=== PATIENT | female | born 1970 | race Caucasian/White ===

== ENCOUNTER → 2017-06-30 | Day surgery (SDC) | payer BC ==
--- NOTE | 2017-06-29 18:44 | MH ---
cc: CEE VELIZ M.D. DATE OF ADMISSION: 06/30/2017 HISTORY OF PRESENT ILLNESS: The patient is a 46-year-old white female, 0, who came to see me in my office at the end of February. At that time she had not been to our office in over four years. She presented for a yearly checkup but reported that her periods over the last eight months have been heavier and longer with a passage of blood clots. We performed a Pap smear at this screening visit at the end of February and it came back with a low-grade MARY and atypical glandular cells of undetermined significance. 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 Based on these findings, I have recommended that the patient undergo a cold knife cone biopsy for definitive diagnosis and possible treatment. She understands and would like to proceed with that. PAST MEDICAL HISTORY: The past medical history on the patient is pertinent for: 1. Hypothyroidism just diagnosed this year. PAST SURGICAL HISTORY: 1. A vulvar mass resection which was benign. 2. An ulnar nerve surgery. MEDICATIONS: 1. Levothyroxine. ALLERGIES TO MEDICATIONS: None. SOCIAL HISTORY: No tobacco. Rare alcohol. No drug use. 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 FAMILY HISTORY: Family history is negative. 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 No history of STDs. OB HISTORY: 0. PHYSICAL EXAMINATION: WEIGHT: 194. HEIGHT: 5 feet 6. VITAL SIGNS: Blood pressure is 128/80, pulse of 70. BREASTS: Without masses, nodes or discharge. CHEST: Clear to auscultation bilaterally. CARDIAC: Regular rate and rhythm without murmurs, rubs or gallops. ABDOMEN: The abdomen is soft, nontender and nondistended. No hepatosplenomegaly. No costovertebral angle tenderness. No hernias. PELVIC EXAM: Vulva and vagina, normal external female genitalia without lesions. Vaginal vault without lesions. Cervix from colposcopy showed acetowhite mosaic lesions between six and twelve o'clock. Uterus palpates normal size. No adnexal masses. LABORATORY VALUES: As in the history of present illness. ASSESSMENT: A high-grade lesion on the ectocervix and a high-grade lesion on the endocervix. PLAN: The plan will be for a cold knife cone biopsy. MD ANIYAH Roblero/JCKenzie /6:23 PM /6:31 PM
[~2017-06-30] VITALS: Ht 167.6 cm; Wt 88.4 kg
[~2017-06-30] MED LIST: CHLORHEXIDINE GLUCONATE 2 % 1 PACK (2 CLOTHS) TOPICAL PRN; DEXAMETHASONE SOD PHOS 4 MG/ML VIAL IV ONE; DO NOT ADM ANY ANTICOAGULANT DRUGS PRN; INSULIN HUMAN REGULAR 1,000 UNITS/10 ML VIAL SQ PRN; KETOROLAC TROMETHAMINE 30 MG/ML (IVP) VIAL IV PUSH ONE; KETOROLAC TROMETHAMINE 30 MG/ML (IVP) VIAL ONE; LACTATED RINGER'S 1000 ML IV PRN; LEVO50TA4 PO; LIDOCAINE 1%/EPINEPHrine 1:100,000 SOLN 50 ML VIAL ONE; LIDOCAINE HCL 1% PF 5 ML AMPULE OTHER ONE; LIOT25TA3 PO; METOPROLOL TARTRATE 25 MG TAB PO PRN; MULTTAB67 PO; ONDANSETRON HCL 4 MG/2 ML VIAL IV PUSH ONE; ONDANSETRON HCL 4 MG/2 ML VIAL IV PUSH PRN; PHENYLEPH/NS 1000 MCG/10 ML SYR IV ONE; POVIDONE IODINE 5% (ANTISEPSIS KIT) 4 APPLICATIONS EACH NARE PRN; PROPOFOL 200 MG/20 ML AMP IV ONE; SODIUM CHLORID 0.9% 500 ML IV PRN; oxyCODONE/ACETAMINOPHEN 5 MG/325 MG TAB PO PRN
[2017-06-30 08:58] LABS: AUTOMATED NEUTROPHIL # 3.4 TH/MM3 (1.8-7.7); BASOPHIL # 0.1 TH/MM3 (0-0.2); BASOPHIL % 1.1 % (0.0-2.0); EOSINOPHIL # 0.1 TH/MM3 (0-0.4); EOSINOPHIL % 1.5 % (0.0-4.0); HEMATOCRIT 30.6 % (35.0-46.0); HEMO FLAGS DIFF FINAL; LYMPH % 26.8 % (9.0-44.0); LYMPHOCYTE # 1.5 TH/MM3 (1.0-4.8); MEAN CELL VOLUME 70.1 FL (80.0-100.0); MEAN CORPUSCULAR HEMOGLOBIN 21.6 PG (27.0-34.0); MEAN CORPUSCULAR HGB CONC 30.8 % (32.0-36.0); MONO % 8.7 % (0.0-8.0); NEUT % 61.9 % (16.0-70.0); PLATELET COUNT 419 TH/MM3 (150-450); RED BLOOD COUNT 4.36 MIL/MM3 (4.00-5.30); RED CELL DISTRIBUTION WIDTH 17.2 % (11.6-17.2); WHITE BLOOD COUNT 5.5 TH/MM3 (4.0-11.0)
[2017-06-30 09:18] LABS: BETA HCG QUANT LESS THAN 1 MIU/ML (0-5)
[2017-06-30 13:12] VITALS: BP 128/72; PULSE 78; RESP 16; TEMP 98.7; O2SAT 100
--- NOTE | 2017-07-01 09:56 | MP ---
cc: CEE VELIZ M.D. DATE OF SURGERY: 06/30/2017 PREOPERATIVE DIAGNOSIS High-grade MARY (squamous intraepithelial lesion) of the ectocervix and the endocervix. POSTOPERATIVE DIAGNOSIS High-grade MARY (squamous intraepithelial lesion) of the ectocervix and the endocervix. PROCEDURE PERFORMED Cold knife cone biopsy. OPERATING SURGEON Dr. Cee Veliz. ANESTHESIA General by facemask. FINDINGS Findings in surgery included a nulliparous cervix. ESTIMATED BLOOD LOSS Minimal. COMPLICATIONS None. PROCEDURE IN DETAIL After proper consents were obtained, the patient was taken to the operating room where general by facemask anesthesia was applied. She was then sterilely prepped and draped, placed in the dorsal lithotomy position and her bladder was drained. At this time a weighted speculum was placed in the vaginal vault. The anterior lip of cervix was grasped with an Allis clamp. Just for retraction sake I went ahead and placed stay sutures at 3 o'clock and 9 o'clock with 0 Vicryl and tied those down. I then injected lidocaine with epinephrine in a circumferential fashion around the cervix. I then performed a cold knife cone biopsy being very aggressive with the endocervix due to her positive ECC. I then performed an endocervical curetting above the cone biopsy. I used a Bovie cautery in the bed of the cone for hemostasis. I then ran the stay sutures from 3 to 9 o'clock in an interlocking fashion and then from 9 o'clock to 3 o'clock. Excellent hemostasis was noted. I placed Surgicel in the bed of the cone biopsy and tied the two ends across from the 3 and 9 o'clock sutures. The instruments were removed. Counts were correct. The patient was stable to the recovery room. MD ANIYAH Roblero/BECCA /7:50 AM /9:45 AM
== END | disposition home or self-care (01) ==
LOC: HSDC 07:58
PROVIDERS: ATTEND Obstetrics & Gynecology
DX: D06.9 Carcinoma in situ of cervix, unspecified (principal)
CPT/HCPCS: 00940; 57520; 84702; 85025; 88305; 88307; J1100; J1885; J2370; J2405; J3010; J7120

== ENCOUNTER 2018-05-11 08:52 | Inpatient (IN) ==
[2018-05-11] MEDS ORDERED: Sod Chloride 0.9% Inj 1,000 ML IV.SIG SCH (09:15)
--- NOTE | 2018-05-11 09:51 | ED ---
HPI General Chief Complaint: Respiratory Symptoms Stated Complaint: SOB Time Seen by Provider: 05/11/18 09:05 Source: patient Mode of arrival: ambulatory Limitations: no limitations History of Present Illness Patient is a 47-year-old female, past medical history significant for fibroids for which she is on oral contraceptives, who presents with complaint of shortness of breath over the last several days. She originally attributed it to the humidity but realizes that was likely not the cause. No chest pain. No fever, chills, cough, congestion. She has not had any leg swelling or immobilization. She has also had dysfunctional uterine bleeding with a menstrual cycle for the last 15 days that is improving. She is using less than 1 pad an hour. 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 MD Complaint: shortness of breath Onset (ago): day(s) Severity: moderate Consistency/Duration: constant Relieving factors: nothing Exacerbating factors: nothing Treatment prior to arrival: none Related Data Home Medications Medication Instructions Recorded Confirmed norethindrone-e.estradiol-iron 1 cap PO DAILY 05/11/18 05/11/18 [Taytulla] Allergies Allergy/AdvReac Type Severity Reaction Status Date / Time No Known Allergies Allergy Uncoded 06/30/17 08:20 Review of Systems ROS: all other systems reviewed are negative [facility] Medical History Medical History Uterine fibroid (Acute) Social History Social History Substance History: No History of Abuse Second Hand Smoke Exposure: No Smoking Status: Never smoker How Often Do You Have a Drink Containing Alcohol: 2 to 4 times a month Recent Travel in [facility] within the Last 8 Weeks: No Recent Out of Country Travel within the Last 8 Weeks: No Immunization History Tetanus Immunization: <5 Years Hx Influenza Vaccine This Season: No Exam Narrative Exam Narrative: GENERAL: Generally well-appearing, pale female in no acute distress SKIN: Focused skin assessment warm/dry. HEAD: Atraumatic. Normocephalic. EYES: Pupils equal and round. No scleral icterus. No injection or drainage. ENT: No nasal bleeding or discharge. Mucous membranes pink and moist. NECK: Trachea midline. No JVD. CARDIOVASCULAR: Tachycardic but regular. No murmur appreciated. Intact and equal peripheral pulses. RESPIRATORY: No accessory muscle use. Clear to auscultation. Breath sounds equal bilaterally. GASTROINTESTINAL: Abdomen soft, non-tender, nondistended. Hepatic and splenic margins not palpable. MUSCULOSKELETAL: No obvious deformities. No clubbing. No cyanosis. No edema. NEUROLOGICAL: Awake and alert. No obvious cranial nerve deficits. Motor grossly within normal limits. Normal speech. PSYCHIATRIC: Appropriate mood and affect; insight and judgment normal. Course Initial Documented Vital Signs Temperature 98.1 F 05/11/18 08:56 Pulse Rate 125 H 05/11/18 08:56 Respiratory Rate 18 05/11/18 08:56 Blood Pressure 191/82 H 05/11/18 08:56 Pulse Oximetry 100 05/11/18 08:56 Last Documented Vital Signs Temperature 98.1 F 05/11/18 08:56 Pulse Rate 102 H 05/11/18 10:30 Respiratory Rate 18 05/11/18 08:58 Blood Pressure 141/74 H 05/11/18 10:30 Pulse Oximetry 98 05/11/18 10:57 Medical Decision Making [facility] Narrative Medical decision making narrative: Patient is a 47-year-old female who presents with complaint of shortness of breath over the last several days with 2 weeks of menstruation that is improving since she has been put on oral contraceptives. Imaging shows a small right pleural effusion but no pulmonary embolism. Labs do reveal hemoglobin of 6.5. She will be given 2 units of red blood cells and admitted for transfusion. I spoke with the resident information developer for Dr. Cedillo who accepted the admission. Medical Screen Exam Complete: Yes Emergency Medical Condition: Yes Differential Diagnosis Differential Diagnosis: Differential diagnosis includes but is not limited to pulmonary embolism, acute coronary syndrome, pneumonia, pneumothorax, symptomatic anemia. Medical Records Medical records reviewed: Yes I reviewed the patient's medical records. Lab Data Result diagrams: 05/11/18 10:30 05/11/18 10:30 POC Results POC Urine Results Negative Lab Results 05/11/18 05/11/18 05/11/18 Range/Units 10:30 10:30 10:30 WBC 5.9 (4.0-11.0) th/mm3 RBC 2.53 L (4.00-5.30) mil/mm3 Hgb 6.5 L* (11.6-15.3) gm/dL Hct 21.0 L (35.0-46.0) % MCV 83.0 (80.0-100.0) fL MCH 25.8 L (27.0-34.0) pg MCHC 31.1 L (32.0-36.0) % RDW 25.6 H (11.6-17.2) % Plt Count 336 (150-450) th/mm3 MPV 7.7 (7.0-11.0) fL Prelim Diff (Auto) Slide review pending Neut % (Auto) 67.6 (16.0-70.0) % Lymph % (Auto) 23.0 (9.0-44.0) % [place] % (Auto) 6.4 (0.0-8.0) % Eos % (Auto) 2.6 (0.0-4.0) % Baso % (Auto) 0.4 (0.0-2.0) % Neut # (Auto) 4.0 (1.8-7.7) th/mm3 Lymph # (Auto) 1.3 (1.0-4.8) th/mm3 [place] # (Auto) 0.4 (0.0-0.9) th/mm3 Eos # (Auto) 0.1 (0.0-0.4) th/mm3 Baso # (Auto) 0.0 (0.0-0.2) th/mm3 Differential Comment . PT 9.9 (9.8-11.6) sec INR 1.0 Ratio APTT 19.8 L (24.3-30.1) sec Sodium 141 (136-145) meq/L Potassium 3.5 (3.5-5.1) meq/L Chloride 107 (98-107) meq/L Carbon Dioxide 23.0 (21.0-32.0) meq/L Anion Gap 11 (5-15) meq/L BUN 10 (7-18) mg/dL Creatinine 0.93 (0.50-1.00) mg/dL Estimated GFR 65 L (>89) mL/min Random Glucose 99 (74-106) mg/dL Calcium 8.0 L (8.5-10.1) mg/dL Total Bilirubin 0.3 (0.2-1.0) mg/dL AST 11 L (15-37) U/L ALT 16 (10-53) U/L Alkaline Phosphatase 58 (45-117) U/L Troponin I Less than 0.02 L (0.02-0.05) ng/mL Total Protein 6.7 (6.4-8.2) g/dL Albumin 3.4 (3.4-5.0) g/dL Urine Color (Yellw/Straw) Urine Clarity (Clear) Urine pH (5.0-8.5) Ur Specific [place] (1.002-1.035) Urine Protein (Neg-Trace) mg/dL Urine Glucose (UA) (Negative) mg/dL Urine Ketones (Negative) mg/dL Urine Occult Blood (Negative) Urine Nitrate (Negative) Urine Bilirubin (Negative) Urine Urobilinogen (Less than 2) mg/dL Ur Leukocyte Esterase (Negative) Urine RBC (0-3) /hpf Urine WBC (0-5) /hpf Urine WBC Clumps (None) Ur Squamous Epith Cells (0-5) /hpf Urine Bacteria (None) /hpf Urine Mucus (Occasional) /lpf Micro UA Comment Ur Microscopic Review Urine Culture Comments MTS Gel Crossmatch 05/11/18 05/11/18 Range/Units 10:30 11:30 WBC (4.0-11.0) th/mm3 RBC (4.00-5.30) mil/mm3 Hgb (11.6-15.3) gm/dL Hct (35.0-46.0) % MCV (80.0-100.0) fL MCH (27.0-34.0) pg MCHC (32.0-36.0) % RDW (11.6-17.2) % Plt Count (150-450) th/mm3 MPV (7.0-11.0) fL Prelim Diff (Auto) Neut % (Auto) (16.0-70.0) % Lymph % (Auto) (9.0-44.0) % [place] % (Auto) (0.0-8.0) % Eos % (Auto) (0.0-4.0) % Baso % (Auto) (0.0-2.0) % Neut # (Auto) (1.8-7.7) th/mm3 Lymph # (Auto) (1.0-4.8) th/mm3 [place] # (Auto) (0.0-0.9) th/mm3 Eos # (Auto) (0.0-0.4) th/mm3 Baso # (Auto) (0.0-0.2) th/mm3 Differential Comment PT (9.8-11.6) sec INR Ratio APTT (24.3-30.1) sec Sodium (136-145) meq/L Potassium (3.5-5.1) meq/L Chloride (98-107) meq/L Carbon Dioxide (21.0-32.0) meq/L Anion Gap (5-15) meq/L BUN (7-18) mg/dL Creatinine (0.50-1.00) mg/dL Estimated GFR (>89) mL/min Random Glucose (74-106) mg/dL Calcium (8.5-10.1) mg/dL Total Bilirubin (0.2-1.0) mg/dL AST (15-37) U/L ALT (10-53) U/L Alkaline Phosphatase (45-117) U/L Troponin I (0.02-0.05) ng/mL Total Protein (6.4-8.2) g/dL Albumin (3.4-5.0) g/dL Urine Color Red (Yellw/Straw) Urine Clarity Cloudy H (Clear) Urine pH 6.0 (5.0-8.5) Ur Specific [place] 1.011 (1.002-1.035) Urine Protein 100 H (Neg-Trace) mg/dL Urine Glucose (UA) Negative (Negative) mg/dL Urine Ketones Negative (Negative) mg/dL Urine Occult Blood Large H (Negative) Urine Nitrate Negative (Negative) Urine Bilirubin Negative (Negative) Urine Urobilinogen Less than 2 (Less than 2) mg/dL Ur Leukocyte Esterase Moderate H (Negative) Urine RBC (0-3) /hpf Urine WBC 19 H (0-5) /hpf Urine WBC Clumps Occasional H (None) Ur Squamous Epith Cells 5 (0-5) /hpf Urine Bacteria Occasional H (None) /hpf Urine Mucus Few H (Occasional) /lpf Micro UA Comment Culture indicated Ur Microscopic Review Not Reportable Urine Culture Comments Culture indicated MTS Gel Crossmatch See Detail Imaging Data Attestation: I personally reviewed and interpreted this imaging study as follows : My impression: Small effusion but no other acute cardiopulmonary process. Radiologist's impression: Chest X-Ray 05/11/18 09:12 CONCLUSION: Negative for an acute process. Chest CTA 05/11/18 09:13 CONCLUSION: 1. Isolated small right pleural effusion. 2. Normal heart size without obvious congestive failure or pulmonary embolism. 3. There is no adenopathy. ECG Data EKG Prior to Arrival: No Attestation: I personally reviewed and interpreted this ECG as follows: (Sinus tachycardia at a rate of 111 bpm. There are no ST or T-wave changes.) Discharge Plan Discharge Disposition Patient Disposition: 30 Still Patient Discharge Condition Condition: Stable Discharge Details Diagnosis: Symptomatic anemia Physicians Team ED Provider: Doris Guardado Primary Care Provider: Terrance Anderson Rxs /Orders / Referrals /Forms Prescriptions: No Action norethindrone-e.estradiol-iron [Taytulla] 1 mg-20 mcg (24)/75 mg (4) Capsule 1 cap PO DAILY RF: 0 Discharge Interventions Interventions: Vital Signs Last Done: 05/11/18 10:30 Status ED Status: With Doctor
--- NOTE | 2018-05-11 09:51 | XR ---
EXAM DATE: 05/11/2018 9:48 AM EDT AGE/SEX: 47 years / Female INDICATIONS: Short of breath. Patient states taking medication for fibroids for 3 weeks and has seen a change in her breathing. CLINICAL DATA: This is the patient's initial encounter. Patient reports that signs and symptoms have been present for 2 weeks and indicates a pain score of 4/10. MEDICAL/SURGICAL HISTORY: . Uterine fibroids None. COMPARISON: No prior exams available for comparison. FINDINGS: A single AP view of the chest demonstrates the lungs to be symmetrically aerated without evidence of mass, infiltrate or effusion. The cardiomediastinal contours are unremarkable. Osseous structures a re intact. CONCLUSION: Negative for an acute process. Electronically signed by: Nathaniel Welch MD 05/11/2018 9:50 AM EDT
[2018-05-11 11:32] LABS: Baso % (Auto) 0.4 % (0.0-2.0); Eos # (Auto) 0.1 th/mm3 (0.0-0.4); Eos % (Auto) 2.6 % (0.0-4.0); Lymph # (Auto) 1.3 th/mm3 (1.0-4.8); Mean Corpuscular HGB Conc 31.1 % (32.0-36.0); Mean Corpuscular Hemoglobin 25.8 pg (27.0-34.0); Mean Platelet Volume 7.7 fL (7.0-11.0); Mono # (Auto) 0.4 th/mm3 (0.0-0.9); Mono % (Auto) 6.4 % (0.0-8.0); Neut % (Auto) 67.6 % (16.0-70.0); Platelet Count 336 th/mm3 (150-450); Red Blood Count 2.53 mil/mm3 (4.00-5.30); Red Cell Distribution Width 25.6 % (11.6-17.2); White Blood Count 5.9 th/mm3 (4.0-11.0)
--- NOTE | 2018-05-11 11:38 | CT ---
EXAM DATE: 05/11/2018 11:33 AM EDT AGE/SEX: 47 years / Female INDICATIONS: Shortness of breath today. CLINICAL DATA: This is the patient's initial encounter. Patient reports that signs and symptoms have been present for 1 day and indicates a pain score of 0/10. MEDICAL/SURGICAL HISTORY: None. None. RADIATION DOSE: 10.37 CTDI (mGy) COMPARISON: No prior exams available for comparison. TECHNIQUE: Volumetric scanning was performed using a multi-row detector CT scanner during bolus infu kevin of 73 ml Omnipaque 350 (iohexol) nonionic water-soluble contrast as a single exam dose. The rafael a was post processed with a variety of visualization algorithms including full volume maximum intensi ty projection and sliding thin slab reformation. Using automated exposure control and adjustment of t he mA and/or kV according to patient size, radiation dose was kept as low as reasonably achievable to obtain optimal diagnostic quality images. DICOM format image data is available electronically for r eview and comparison. FINDINGS: Pulmonary Arteries: No filling defects are seen in the pulmonary arteries out to the subsegmental ve ssels. The left and right pulmonary arteries are normal in diameter. There is no cardiomegaly. No si gnificant coronary calcifications. Lung: Small right pleural effusion without consolidation. Normal left lung. Mediastinum: No evidence of mediastinal or hilar adenopathy. Right pleural effusion Other: The axilla is unremarkable. CONCLUSION: 1. Isolated small right pleural effusion. 2. Normal heart size without obvious congestive failure or pulmonary embolism. 3. There is no adenopathy. Electronically signed by: Nathaniel Welch MD 05/11/2018 11:37 AM EDT
[2018-05-11 11:39] LABS: Hemoglobin 6.5 gm/dL (11.6-15.3)
[2018-05-11 11:45] LABS: Prothrombin Time 9.9 sec (9.8-11.6)
[2018-05-11 11:46] LABS: Activated Partial Thrombo Time 19.8 sec (24.3-30.1)
[2018-05-11 11:58] LABS: Bacteria,Urine Occasional /hpf; Bilirubin,Urine Negative (Negative); Clarity,Urine Cloudy (Clear); Color,Urine Red (Yellw/Straw); Glucose,Urine (UA) Negative (Negative); Leukocyte Esterase,Urine Moderate (Negative); Mucus,Urine Few /lpf (Occasional); Nitrite,Urine Negative (Negative); Specific Gravity,Urine 1.011 (1.002-1.035); Squamous Epithelial Cell,Urine 5 /hpf (0-5)
[2018-05-11] MEDS ORDERED: Sodium Chlor 0.9% Inj 250 ML IV.SIG SCH (12:00)
[2018-05-11 12:03] LABS: Albumin 3.4 g/dL (3.4-5.0); Anion Gap 11 meq/L (5-15); Aspartate Aminotransferase 11 U/L (15-37); Blood Urea Nitrogen 10 mg/dL (7-18); Chloride 107 meq/L (98-107); Glomerular Filtration Rate 65 mL/min (>89); Glucose,Random 99 mg/dL (74-106); Potassium 3.5 meq/L (3.5-5.1); Sodium 141 meq/L (136-145)
[2018-05-11 12:05] LABS: Alanine Aminotransferase 16 U/L (10-53)
[2018-05-11 12:09] LABS: Alkaline Phosphatase 58 U/L (45-117); Total Protein 6.7 g/dL (6.4-8.2)
[2018-05-11 12:14] LABS: Ovalocytes 1+; Polychromasia 2.3 % (0.0-1.9)
[2018-05-11] MEDS ORDERED: Acetaminophen 325 MG Tablet PO PRN (12:20)
[2018-05-11] MEDS ORDERED: Bisacodyl 10 MG Supp RECTAL PRN (12:20)
--- NOTE | 2018-05-11 18:11 | P.HPFP ---
History of Present Illness Primary Care Physician: Terrance Anderson MD <Wendy Cedillo - 05/11/18 20:57> Terrance Anderson MD <Anu Robbins V - 05/11/18 18:11> Chief Complaint: Shortness of breath <Anu Robbins V - 05/11/18 20:28> History of Present Illness: Pt is a 47 yr old female with a PMH of fibroids, currently being seen outpatient by Dr. Joseph, whom presented to the ED after a 4 day history of shortness of breath. Pt states she has been on a new control pill to try to control her fibroid pain/periods. Pt states she has had a heavy period for the past 2 weeks non stop. She reports going through over 40 tampons. She states she's been having the most severe mestrual cramps she ever had and has been passing large blood clots. Last Friday she started feeling short of breath and that her heart was racing, she called her Doctor and was instructed to get outpatient labs. She was notified today, Friday morning, that her Hb on Friday was 5. This morning (before receiving call back) pt decided to come to the ED due to continuous symptoms. She denies chest pain, chills/ fevers, fainting, but states has been feeling week and dizzy. 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 She denies tobacco, alcohol, or recreational drug use. She is not sexually active at the moment. Pt denies Family history. <Anu Robbins V - 05/11/18 20:45> - Diagnosis (1) Symptomatic anemia (2) Nutrition, metabolism, and development symptoms (3) DVT prophylaxis <Wendy Cedillo - 05/11/18 20:57> (1) Symptomatic anemia (2) Nutrition, metabolism, and development symptoms (3) DVT prophylaxis <Anu Robbins V - 05/11/18 20:29> Inpatient Certification: I certify that the inpatient services were ordered in accordance with Medicare regulations governing the order. This includes certification that hospital inpatient services are reasonable and necessary and in the case of services not specified as inpatient-only under 42 CFR 419.22(n), that they are appropriately provided as inpatient services in accordance to with the 2-midnight benchmark under 43 CFR 412.3(e) <Wendy Cedillo - 05/11/18 20:57> I certify that the inpatient services were ordered in accordance with Medicare regulations governing the order. This includes certification that hospital inpatient services are reasonable and necessary and in the case of services not specified as inpatient-only under 42 CFR 419.22(n), that they are appropriately provided as inpatient services in accordance to with the 2-midnight benchmark under 43 CFR 412.3(e) <Juan VillasenorAnu Villalba 05/11/18 18:11> Estimated Total Length of Stay (Days): 2 <Anu Robbins V 05/11/18 18: 11> Plans for Post Hospital Care: Home <Juan VillasenorAnu Villalba 05/11/18 18:11> Review of Systems Constitutional: Reports lack of energy, Reports weakness, Denies chills, Denies fever(s), Denies headache(s) <Juan VillasenorAnu Villalba 05/11/18 20:28> Ears, Nose, Mouth, and Throat: Denies headache(s) <Juan VillasenorAnu Villalba 20:28> Cardiovascular: Reports fast heart rate, Reports lightheadedness, Reports shortness of breath, Reports shortness of breath with activity, Denies chest pain, Denies fainting, Denies leg swelling <Juan VillasenorAnu Villalba 05/11/18 20:28> Respiratory: Reports shortness of breath, Denies cough <Juan VillasenorAnu Villalba 05/11/18 20:28> Gastrointestinal: Reports abdominal pain, Reports cramping, Denies vomiting < Juan VillasenorAnu Villalba 05/11/18 20:28> Genitourinary: Reports abnormal periods, Reports abnormal vaginal bleeding, Reports bleeding between periods, Reports heavy periods, Reports pelvic pain, Denies painful urination, Denies urinary urgency <Juan Villasenor,Anu Villalba 20:28> Neurologic: Reports dizziness, Denies fainting <Juan VillasenorAnu Villalba 20:28> PMFSH - History History Provided By: Patient <Juan VillasenorAnu Villalba 05/11/18 18:11> - Medical History Medical History: Medical History (Last Updated 05/11/18 @ 20:32 by Anu Villasenor MD, R1) HPV (human papilloma virus) infection History of hypothyroidism Uterine fibroid Vulvar cyst <Wendy Cedillo - 05/11/18 20:57> Medical History (Last Updated 05/11/18 @ 20:32 by Anu Villasenor MD, R1) HPV (human papilloma virus) infection History of hypothyroidism Uterine fibroid Vulvar cyst <Aun Robbins V 05/11/18 20:45> - Surgical History Surgical History: Surgical History (Last Updated 05/11/18 @ 20:33 by Anu Villasenor MD, R1 ) Hx of cone biopsy of cervix Hx of total cystectomy <Wendy Cedillo - 05/11/18 20:57> Surgical History (Last Updated 05/11/18 @ 20:33 by Anu Villasenor MD, R1 ) Hx of cone biopsy of cervix Hx of total cystectomy <Anu Robbins V 05/11/18 20:45> - Tobacco History Second Hand Smoke Exposure: No <Anu Robbins V 05/11/18 18:11> Tobacco Use In Past 30 Days: No <Anu Robbins V 05/11/18 18:11> Smoking Status: Never smoker <Anu Robbins V 05/11/18 18:11> - Alcohol History How Often Do You Have a Drink Containing Alcohol: Monthly or less <Anu Robbins V 05/11/18 18:11> - Substance Use History Substance History: No History of Abuse <Anu Robbins V 05/11/18 18:11 > - Travel History Recent Travel in the [facility] Within the Last 8 Weeks: No <Anu Robbins V 05/11/18 18:11> Recent Travel Out of the Country Within the Last 8 Weeks: No <Anu Robbins V 05/11/18 18:11> - Immunization History Tetanus Immunization: <5 Years <Anu Robbins V 05/11/18 18:11> Hx Influenza Vaccine This Season: No <Anu Robbins V 05/11/18 18:11> Medications and Allergies Allergies Allergy/AdvReac Type Severity Reaction Status Date / Time No Known Allergies Allergy Uncoded 06/30/17 08:20 <Wendy Cedillo - 05/11/18 20:57> Home Medications Medication Instructions Recorded Confirmed Type norethindrone-e.estradiol-iron 1 cap PO DAILY 05/11/18 05/11/18 History [[place]] <Wendy Cedillo - 05/11/18 20:57> Active Medications: Active Medications Acetaminophen (Tylenol) 650 mg PO Q4H PRN PRN Reason: TEMP>101F, HEADACHE Last Admin: 05/11/18 16:11 Dose: 650 mg Al Hydroxide/Mg Hydroxide (Milk Of Magnesia Liq) 30 ml PO Q12H PRN PRN Reason: Mild Constipation Bisacodyl (Dulcolax Supp) 10 mg RECTAL DAILY PRN PRN Reason: SEVERE CONSITIPATION Sodium Chloride (Ns Inj) 1,000 mls @ 0 mls/hr IV.SIG BOLUS CEDRIC Sodium Chloride (Ns Inj) 250 mls @ 15 mls/hr IV.SIG ONCE CEDRIC Stop: 05/12/18 04:39 Last Admin: 05/11/18 16:12 Dose: 15 mls/hr Ibuprofen (Motrin) 600 mg PO Q6H PRN PRN Reason: pain 1-10 Lactulose (Lactulose Liq) 30 ml PO DAILY PRN PRN Reason: SEVERE CONSITIPATION Ondansetron HCl (Zofran Inj) 4 mg IV.PUSH Q6H PRN PRN Reason: NAUSEA OR VOMITING Senna/Docusate Sodium (Radha-Colace) 1 tab PO BID [facility] Sennosides (Senokot) 17.2 mg PO Q12H PRN PRN Reason: Moderate Constipation Sodium Chloride (Ns Flush) 2 ml IV.FLUSH PRN PRN PRN Reason: FLUSH AFTER USING IV ACCESS <Wendy Cedillo - 05/11/18 20:57> Active Medications Acetaminophen (Tylenol) 650 mg PO Q4H PRN PRN Reason: TEMP>101F, PAIN 1-10, HEADACHE Last Admin: 05/11/18 16:11 Dose: 650 mg Al Hydroxide/Mg Hydroxide (Milk Of Magnesia Liq) 30 ml PO Q12H PRN PRN Reason: Mild Constipation Bisacodyl (Dulcolax Supp) 10 mg RECTAL DAILY PRN PRN Reason: SEVERE CONSITIPATION Sodium Chloride (Ns Inj) 1,000 mls @ 0 mls/hr IV.SIG BOLUS CEDRIC Sodium Chloride (Ns Inj) 250 mls @ 15 mls/hr IV.SIG ONCE CEDRIC Stop: 05/12/18 04:39 Last Admin: 05/11/18 16:12 Dose: 15 mls/hr Lactulose (Lactulose Liq) 30 ml PO DAILY PRN PRN Reason: SEVERE CONSITIPATION Ondansetron HCl (Zofran Inj) 4 mg IV.PUSH Q6H PRN PRN Reason: NAUSEA OR VOMITING Senna/Docusate Sodium (Radha-Colace) 1 tab PO BID CEDRIC Sennosides (Senokot) 17.2 mg PO Q12H PRN PRN Reason: Moderate Constipation Sodium Chloride (Ns Flush) 2 ml IV.FLUSH PRN PRN PRN Reason: FLUSH AFTER USING IV ACCESS <Anu Robbins V - 05/11/18 18:11> Exam Vital signs: Vital Signs 05/11/18 08:56 05/11/18 08:58 05/11/18 09:50 Temperature 98.1 F Pulse Rate 125 H 116 H 106 H Respiratory Rate 18 18 Blood Pressure 191/82 H 176/91 H Pulse Oximetry 100 100 98 05/11/18 10:00 05/11/18 10:30 05/11/18 10:57 Temperature Pulse Rate 106 H 102 H Respiratory Rate Blood Pressure 146/75 H 141/74 H Pulse Oximetry 99 99 98 05/11/18 11:36 05/11/18 11:58 05/11/18 12:00 Temperature Pulse Rate 110 H 106 H 104 H Respiratory Rate Blood Pressure 125/79 135/67 Pulse Oximetry 100 100 100 05/11/18 12:30 05/11/18 13:17 05/11/18 14:12 Temperature 98.4 F Pulse Rate 108 H 114 H 108 H Respiratory Rate 16 18 Blood Pressure 142/65 H 136/67 138/71 Pulse Oximetry 100 99 96 05/11/18 15:45 05/11/18 16:05 05/11/18 16:15 Temperature 100.0 F H 100.1 F H 98.9 F Pulse Rate 117 H 117 H 119 H Respiratory Rate 18 18 18 Blood Pressure 145/78 H 145/73 H 134/71 Pulse Oximetry 99 Intake & Output 05/11/18 05/11/18 05/12/18 06:59 18:59 06:59 Intake Total 250 / 250 400 / 400 Balance 250 / 250 400 / 400 Weight 86.636 kg Intake: Oral 250 / 250 Intake (Blood Product) Amt 0 / 0 400 / 400 Rbc As-3 Leukoreduced Unit 0 / 0 400 / 400 [id number] Other: # Voids 2 Weight On Admission 86.636 kg <Wendy Cedillo - 05/11/18 20:57> Vital Signs 05/11/18 08:56 05/11/18 08:58 05/11/18 09:50 Temperature 98.1 F Pulse Rate 125 H 116 H 106 H Respiratory Rate 18 18 Blood Pressure 191/82 H 176/91 H Pulse Oximetry 100 100 98 05/11/18 10:00 05/11/18 10:30 05/11/18 10:57 Temperature Pulse Rate 106 H 102 H Respiratory Rate Blood Pressure 146/75 H 141/74 H Pulse Oximetry 99 99 98 05/11/18 11:36 05/11/18 11:58 05/11/18 12:00 Temperature Pulse Rate 110 H 106 H 104 H Respiratory Rate Blood Pressure 125/79 135/67 Pulse Oximetry 100 100 100 05/11/18 12:30 05/11/18 13:17 05/11/18 14:12 Temperature 98.4 F Pulse Rate 108 H 114 H 108 H Respiratory Rate 16 18 Blood Pressure 142/65 H 136/67 138/71 Pulse Oximetry 100 99 96 05/11/18 15:45 05/11/18 16:05 05/11/18 16:15 Temperature 100.0 F H 100.1 F H 98.9 F Pulse Rate 117 H 117 H 119 H Respiratory Rate 18 18 18 Blood Pressure 145/78 H 145/73 H 134/71 Pulse Oximetry 99 Intake & Output 05/10/18 05/11/18 05/11/18 18:59 06:59 18:59 Intake Total 0 / 0 Balance 0 / 0 Weight 86.636 kg Intake: Intake (Blood Product) Amt 0 / 0 Rbc As-3 Leukoreduced Unit 0 / 0 [id number] Other: Weight On Admission 86.636 kg <Anu Robbins V - 05/11/18 20:45> Narrative: GENERAL: Well-nourished, pale white female in NAD, sitting in bed. SKIN: Warm and dry. HEAD: Normocephalic and atraumatic. EYES: No scleral icterus. No injection or drainage. Pale eye lids. ENT: No nasal drainage noted. Airway patent. CARDIOVASCULAR: Tachycardic in 100's. Regular rate and rhythm without murmurs, gallops, or rubs. RESPIRATORY: Breath sounds equal bilaterally. No accessory muscle use. ABDOMEN/GI: Abdomen soft, minimally tender to palpation on RUQ and RLQ, bowel sounds present, no rebound, no guarding EXTREMITIES: No cyanosis or edema. Normal capillary refill. BACK: Nontender without obvious deformity. No CVA tenderness. NEUROLOGICAL: Awake and alert. Motor and sensory grossly within normal limits. Normal speech. <Anu Robbins V - 05/11/18 20:45> Results - Labs Result diagrams: 05/11/18 10:30 05/11/18 10:30 <Wendy Cedillo - 05/11/18 20:57> Abnormal lab results 05/11/18 05/11/18 05/11/18 Range/Units 10:30 10:30 10:30 RBC 2.53 L (4.00-5.30) mil/mm3 Hgb 6.5 L* (11.6-15.3) gm/dL Hct 21.0 L (35.0-46.0) % MCH 25.8 L (27.0-34.0) pg MCHC 31.1 L (32.0-36.0) % RDW 25.6 H (11.6-17.2) % Polychromasia 2.3 H (0.0-1.9) % Ovalocytes 1+ H (None) APTT 19.8 L (24.3-30.1) sec Estimated GFR 65 L (>89) mL/min Calcium 8.0 L (8.5-10.1) mg/dL AST 11 L (15-37) U/L Troponin I Less than 0.02 L (0.02-0.05) ng/mL Urine Clarity (Clear) Urine Protein (Neg-Trace) mg/dL Urine Occult Blood (Negative) Ur Leukocyte Esterase (Negative) Urine WBC (0-5) /hpf Urine WBC Clumps (None) Urine Bacteria (None) /hpf Urine Mucus (Occasional) /lpf MTS Gel Crossmatch 05/11/18 05/11/18 Range/Units 10:30 11:30 RBC (4.00-5.30) mil/mm3 Hgb (11.6-15.3) gm/dL Hct (35.0-46.0) % MCH (27.0-34.0) pg MCHC (32.0-36.0) % RDW (11.6-17.2) % Polychromasia (0.0-1.9) % Ovalocytes (None) APTT (24.3-30.1) sec Estimated GFR (>89) mL/min Calcium (8.5-10.1) mg/dL AST (15-37) U/L Troponin I (0.02-0.05) ng/mL Urine Clarity Cloudy H (Clear) Urine Protein 100 H (Neg-Trace) mg/dL Urine Occult Blood Large H (Negative) Ur Leukocyte Esterase Moderate H (Negative) Urine WBC 19 H (0-5) /hpf Urine WBC Clumps Occasional H (None) Urine Bacteria Occasional H (None) /hpf Urine Mucus Few H (Occasional) /lpf MTS Gel Crossmatch See Detail Short CBC 05/11/18 Range/Units 10:30 WBC 5.9 (4.0-11.0) th/mm3 Hgb 6.5 L* (11.6-15.3) gm/dL Hct 21.0 L (35.0-46.0) % Plt Count 336 (150-450) th/mm3 BMP 05/11/18 10:30 Sodium 141 Potassium 3.5 Chloride 107 Carbon Dioxide 23.0 BUN 10 Creatinine 0.93 Calcium 8.0 L Cardiac Enzymes 05/11/18 Range/Units 10:30 Troponin I Less than 0.02 L (0.02-0.05) ng/mL Liver Function 05/11/18 Range/Units 10:30 Total Bilirubin 0.3 (0.2-1.0) mg/dL AST 11 L (15-37) U/L ALT 16 (10-53) U/L Alkaline Phosphatase 58 (45-117) U/L Albumin 3.4 (3.4-5.0) g/dL Urine 05/11/18 Range/Units 10:30 Urine Color Red (Yellw/Straw) Urine Clarity Cloudy H (Clear) Urine pH 6.0 (5.0-8.5) Ur Specific [place] 1.011 (1.002-1.035) Urine Protein 100 H (Neg-Trace) mg/dL Urine Glucose (UA) Negative (Negative) mg/dL <Wendy Cedillo - 05/11/18 20:57> Abnormal lab results 05/11/18 05/11/18 05/11/18 Range/Units 10:30 10:30 10:30 RBC 2.53 L (4.00-5.30) mil/mm3 Hgb 6.5 L* (11.6-15.3) gm/dL Hct 21.0 L (35.0-46.0) % MCH 25.8 L (27.0-34.0) pg MCHC 31.1 L (32.0-36.0) % RDW 25.6 H (11.6-17.2) % Polychromasia 2.3 H (0.0-1.9) % Ovalocytes 1+ H (None) APTT 19.8 L (24.3-30.1) sec Estimated GFR 65 L (>89) mL/min Calcium 8.0 L (8.5-10.1) mg/dL AST 11 L (15-37) U/L Troponin I Less than 0.02 L (0.02-0.05) ng/mL Urine Clarity (Clear) Urine Protein (Neg-Trace) mg/dL Urine Occult Blood (Negative) Ur Leukocyte Esterase (Negative) Urine WBC (0-5) /hpf Urine WBC Clumps (None) Urine Bacteria (None) /hpf Urine Mucus (Occasional) /lpf MTS Gel Crossmatch 05/11/18 05/11/18 Range/Units 10:30 11:30 RBC (4.00-5.30) mil/mm3 Hgb (11.6-15.3) gm/dL Hct (35.0-46.0) % MCH (27.0-34.0) pg MCHC (32.0-36.0) % RDW (11.6-17.2) % Polychromasia (0.0-1.9) % Ovalocytes (None) APTT (24.3-30.1) sec Estimated GFR (>89) mL/min Calcium (8.5-10.1) mg/dL AST (15-37) U/L Troponin I (0.02-0.05) ng/mL Urine Clarity Cloudy H (Clear) Urine Protein 100 H (Neg-Trace) mg/dL Urine Occult Blood Large H (Negative) Ur Leukocyte Esterase Moderate H (Negative) Urine WBC 19 H (0-5) /hpf Urine WBC Clumps Occasional H (None) Urine Bacteria Occasional H (None) /hpf Urine Mucus Few H (Occasional) /lpf MTS Gel Crossmatch See Detail Short CBC 05/11/18 Range/Units 10:30 WBC 5.9 (4.0-11.0) th/mm3 Hgb 6.5 L* (11.6-15.3) gm/dL Hct 21.0 L (35.0-46.0) % Plt Count 336 (150-450) th/mm3 BMP 05/11/18 10:30 Sodium 141 Potassium 3.5 Chloride 107 Carbon Dioxide 23.0 BUN 10 Creatinine 0.93 Calcium 8.0 L Cardiac Enzymes 05/11/18 Range/Units 10:30 Troponin I Less than 0.02 L (0.02-0.05) ng/mL Liver Function 05/11/18 Range/Units 10:30 Total Bilirubin 0.3 (0.2-1.0) mg/dL AST 11 L (15-37) U/L ALT 16 (10-53) U/L Alkaline Phosphatase 58 (45-117) U/L Albumin 3.4 (3.4-5.0) g/dL Urine 05/11/18 Range/Units 10:30 Urine Color Red (Yellw/Straw) Urine Clarity Cloudy H (Clear) Urine pH 6.0 (5.0-8.5) Ur Specific [place] 1.011 (1.002-1.035) Urine Protein 100 H (Neg-Trace) mg/dL Urine Glucose (UA) Negative (Negative) mg/dL <Anu Robbins V - 05/11/18 18:11> - Imaging Impressions Chest X-Ray 05/11/18 09:12 CONCLUSION: Negative for an acute process. Chest CTA 05/11/18 09:13 CONCLUSION: 1. Isolated small right pleural effusion. 2. Normal heart size without obvious congestive failure or pulmonary embolism. 3. There is no adenopathy. <Wendy Cedillo - 05/11/18 20:57> Impressions Chest X-Ray 05/11/18 09:12 CONCLUSION: Negative for an acute process. Chest CTA 05/11/18 09:13 CONCLUSION: 1. Isolated small right pleural effusion. 2. Normal heart size without obvious congestive failure or pulmonary embolism. 3. There is no adenopathy. <Juan VillasenorAnu Villalba - 05/11/18 18:11> Caprini VTE Risk Assessment Caprini VTE Risk Assessment: No/Low Risk (score <= 1) <Anu Robbins V 05/11/18 20:45> VTE Pharmacological Exception Reason: Active bleeding <Anu Robbins V 05/11/18 18:11> Caprini Risk Assessment Model: Point Value = 1 Point Value = 2 Point Value = 3 Point Value = 5 Age 41-60 Minor surgery BMI > 25 kg/m2 Swollen legs Varicose veins or History of unexplained or recurrent spontaneous Oral contraceptives or hormone replacement Sepsis (< 1 month) Serious lung disease, including pneumonia (< 1 month) Abnormal pulmonary function Acute myocardial infarction Congestive heart failure (< 1 month) History of inflammatory bowel disease Medical patient at bed rest Age 61-74 Arthroscopic surgery Major open surgery (> 45 min) Laparoscopic surgery (> 45 min) Malignancy Confined to bed (> 72 hours) Immobilizing plaster cast Central venous access Age >= 75 History of VTE Family history of VTE Factor V Leiden Prothrombin [id number] Lupus anticoagulant Anticardiolipin antibodies Elevated serum homocysteine Heparin-induced thrombocytopenia Other congenital or acquired thrombophilia Stroke (< 1 month) Elective arthroplasty Hip, pelvis, or leg fracture Acute spinal cord injury (< 1 month) <Wendy Cedillo 05/11/18 20:57> Point Value = 1 Point Value = 2 Point Value = 3 Point Value = 5 Age 41-60 Minor surgery BMI > 25 kg/m2 Swollen legs Varicose veins or History of unexplained or recurrent spontaneous Oral contraceptives or hormone replacement Sepsis (< 1 month) Serious lung disease, including pneumonia (< 1 month) Abnormal pulmonary function Acute myocardial infarction Congestive heart failure (< 1 month) History of inflammatory bowel disease Medical patient at bed rest Age 61-74 Arthroscopic surgery Major open surgery (> 45 min) Laparoscopic surgery (> 45 min) Malignancy Confined to bed (> 72 hours) Immobilizing plaster cast Central venous access Age >= 75 History of VTE Family history of VTE Factor V Leiden Prothrombin [id number] Lupus anticoagulant Anticardiolipin antibodies Elevated serum homocysteine Heparin-induced thrombocytopenia Other congenital or acquired thrombophilia Stroke (< 1 month) Elective arthroplasty Hip, pelvis, or leg fracture Acute spinal cord injury (< 1 month) <Anu Robbins V - 05/11/18 18:11> Prophylaxis Regimen: Total Risk Factor Score Risk Level Prophylaxis Regimen 0-1 Low Early ambulation 2 Moderate Order ONE of the following: *Sequential Compression Device (SCD) *Heparin 5000 units SQ BID 3-4 Higher Order ONE of the following medications: *Heparin 5000 units SQ TID *Enoxaparin/Lovenox 40 mg SQ daily (WT < 150 kg, CrCl > 30 mL/min) *Enoxaparin/Lovenox 30 mg SQ daily (WT < 150 kg, CrCl > 10-29 mL/min) *Enoxaparin/Lovenox 30 mg SQ BID (WT < 150 kg, CrCl > 30 mL/min) AND/OR *Sequential Compression Device (SCD) 5 or more Highest Order ONE of the following medications: *Heparin 5000 units SQ TID (Preferred with Epidurals) *Enoxaparin/Lovenox 40 mg SQ daily (WT < 150 kg, CrCl > 30 mL/min) *Enoxaparin/Lovenox 30 mg SQ daily (WT < 150 kg, CrCl > 10-29 mL/min) *Enoxaparin/Lovenox 30 mg SQ BID (WT < 150 kg, CrCl > 30 mL/min) AND *Sequential Compression Device (SCD) <Wendy Cedillo - 05/11/18 20:57> Total Risk Factor Score Risk Level Prophylaxis Regimen 0-1 Low Early ambulation 2 Moderate Order ONE of the following: *Sequential Compression Device (SCD) *Heparin 5000 units SQ BID 3-4 Higher Order ONE of the following medications: *Heparin 5000 units SQ TID *Enoxaparin/Lovenox 40 mg SQ daily (WT < 150 kg, CrCl > 30 mL/min) *Enoxaparin/Lovenox 30 mg SQ daily (WT < 150 kg, CrCl > 10-29 mL/min) *Enoxaparin/Lovenox 30 mg SQ BID (WT < 150 kg, CrCl > 30 mL/min) AND/OR *Sequential Compression Device (SCD) 5 or more Highest Order ONE of the following medications: *Heparin 5000 units SQ TID (Preferred with Epidurals) *Enoxaparin/Lovenox 40 mg SQ daily (WT < 150 kg, CrCl > 30 mL/min) *Enoxaparin/Lovenox 30 mg SQ daily (WT < 150 kg, CrCl > 10-29 mL/min) *Enoxaparin/Lovenox 30 mg SQ BID (WT < 150 kg, CrCl > 30 mL/min) AND *Sequential Compression Device (SCD) <Juan VillasenorMel - 05/11/18 18:11> Assessment and Plan - Assessment (1) Symptomatic anemia Code(s): D64.9 - Anemia, unspecified Status: Acute (2) Nutrition, metabolism, and development symptoms Code(s): R63.8 - Other symptoms and signs concerning food and fluid intake Status: Acute (3) DVT prophylaxis Status: Acute <Wendy Cedillo - 05/11/18 20:57> (1) Symptomatic anemia Code(s): D64.9 - Anemia, unspecified Status: Acute Plan: Pt found to have a Hb of 6.5 on admission accompanied with symptoms of shortness of breath and tachycardia. CTA negative for PE. - Pt admitted to inpatient unit - Two units of pRBC being transfused today - H/H post transfusion - F/U labs in morning - Discussed case with pt's outpatient diagrammer and seamer and will discharge patient on Megace (progesterone analog) 40mg TID with outpatient follow up. (2) Nutrition, metabolism, and development symptoms Code(s): R63.8 - Other symptoms and signs concerning food and fluid intake Status: Acute Plan: Diet: regular Fluids: tolerating PO Electrolytes: monitor and replace as needed (3) DVT prophylaxis Status: Acute Plan: Pt actively bleeding - Will hold off on pharmacological treatment at this time - Early ambulation & bilateral SCD's <Juan VillasenorMel - 05/11/18 20:29> - Assessment and Plan 47 yr old female with PMH of fibroids, currently seeing OBGYN outpatient, admitted for shortness of breath. Pt found to have a Hb of 6.5 on admission, and a history of heavy periods for 2 weeks after starting OCPs. CTA negative for PE. Pt is being transfused 2 U pRBC today and monitored overnight. Will continue to monitor her H/H and adjust plant of care as needed. Pt discussed with Dr. Cedillo, senior residents Dr. Rivera and Dr. Vitale. <Anu Robbins V - 05/11/18 20:45> - Attending Attestation Patient seen, examined, and discussed with resident team. I agree with assessment and management as documented and discussed with me. PT seen in F pod. She reports feeling fatigued and SOB. Reviewed labs with patient, with recent hemoglobin of 5 a few days ago and 6.5 today. On exam, pad with minimal blood, no clots, last changed 3-4 hours ago. Continue transfusion, Megace as recommended. Additional diagnosis: Fibroid uterus: Etiology of anemia. Pt has appt this week with her OB-CHIMNEY MECHANIC. I discussed with the potential treatment options that may be discussed with her this week. Encouraged pt to take PO iron after discharge. I certify that inpatient admission is warranted and 2 midnight stay is anticipated based on reasons documented in H&P <Wendy Cedillo - 05/11/18 20:57> H&P: Quality - VTE Deep Vein Thrombosis/Pulmonary Embolism Present on Admission: No <Anu Robbins V - 05/11/18 18:11>
[2018-05-11] MEDS ORDERED: Ibuprofen 600 MG Tablet PO PRN (18:12)
[2018-05-11] MEDS: Senna/Docusate Sodium 8.6/50 MG Tablet PO SCH (21:16)
[2018-05-12 01:44] LABS: Baso % (Auto) 0.4 % (0.0-2.0); Eos # (Auto) 0.1 th/mm3 (0.0-0.4); Eos % (Auto) 1.4 % (0.0-4.0); Hematocrit 24.2 % (35.0-46.0); Lymph # (Auto) 1.6 th/mm3 (1.0-4.8); Lymph % (Auto) 19.3 % (9.0-44.0); Mean Corpuscular HGB Conc 33.1 % (32.0-36.0); Mean Corpuscular Hemoglobin 27.1 pg (27.0-34.0); Mean Corpuscular Volume 81.8 fL (80.0-100.0); Mean Platelet Volume 7.4 fL (7.0-11.0); Mono # (Auto) 0.7 th/mm3 (0.0-0.9); Mono % (Auto) 8.6 % (0.0-8.0); Neut # (Auto) 5.8 th/mm3 (1.8-7.7); Neut % (Auto) 70.3 % (16.0-70.0); Platelet Count 264 th/mm3 (150-450); Red Blood Count 2.95 mil/mm3 (4.00-5.30); Red Cell Distribution Width 20.8 % (11.6-17.2); White Blood Count 8.2 th/mm3 (4.0-11.0)
[2018-05-12 01:54] LABS: Calcium 7.8 mg/dL (8.5-10.1); Carbon Dioxide 25.7 meq/L (21.0-32.0); Potassium 3.8 meq/L (3.5-5.1)
[2018-05-12] MEDS: Senna/Docusate Sodium 8.6/50 MG Tablet PO SCH (09:19)
--- NOTE | 2018-05-12 11:40 | P.PNFP ---
Addendum entered and electronically signed by Rosa Maria Vitale MD, R3 05/12/18 11:40: Patient will also be discharged with ferrous sulfate 325mg TID, stool softeners , and as needed ibuprofen. Original Note: Subjective Interval history: Patient was seen and examined this morning. She feels better this morning and denies dizziness, chest pain, and shortness of breath since the two units of blood were administered. She has walked to the bathroom without difficulty. Bleeding reportedly minimal. <Rosa Maria Vitale - 05/12/18 11:40> Results - Labs Result diagrams: 05/12/18 01:15 05/12/18 01:15 <Senait Cedilloe - 05/14/18 15:20> Abnormal lab results 05/11/18 05/11/18 05/11/18 Range/Units 10:30 10:30 10:30 RBC 2.53 L (4.00-5.30) mil/mm3 Hgb 6.5 L* (11.6-15.3) gm/dL Hct 21.0 L (35.0-46.0) % MCH 25.8 L (27.0-34.0) pg MCHC 31.1 L (32.0-36.0) % RDW 25.6 H (11.6-17.2) % Neut % (Auto) (16.0-70.0) % [place] % (Auto) (0.0-8.0) % Polychromasia 2.3 H (0.0-1.9) % Ovalocytes 1+ H (None) APTT 19.8 L (24.3-30.1) sec Estimated GFR 65 L (>89) mL/min Random Glucose (74-106) mg/dL Calcium 8.0 L (8.5-10.1) mg/dL AST 11 L (15-37) U/L Troponin I Less than 0.02 L (0.02-0.05) ng/mL Urine Clarity (Clear) Urine Protein (Neg-Trace) mg/dL Urine Occult Blood (Negative) Ur Leukocyte Esterase (Negative) Urine WBC (0-5) /hpf Urine WBC Clumps (None) Urine Bacteria (None) /hpf Urine Mucus (Occasional) /lpf MTS Gel Crossmatch 05/11/18 05/11/18 05/12/18 Range/Units 10:30 11:30 01:15 RBC 2.95 L (4.00-5.30) mil/mm3 Hgb 8.0 L (11.6-15.3) gm/dL Hct 24.2 L (35.0-46.0) % MCH (27.0-34.0) pg MCHC (32.0-36.0) % RDW 20.8 H D (11.6-17.2) % Neut % (Auto) 70.3 H (16.0-70.0) % [place] % (Auto) 8.6 H (0.0-8.0) % Polychromasia (0.0-1.9) % Ovalocytes (None) APTT (24.3-30.1) sec Estimated GFR (>89) mL/min Random Glucose (74-106) mg/dL Calcium (8.5-10.1) mg/dL AST (15-37) U/L Troponin I (0.02-0.05) ng/mL Urine Clarity Cloudy H (Clear) Urine Protein 100 H (Neg-Trace) mg/dL Urine Occult Blood Large H (Negative) Ur Leukocyte Esterase Moderate H (Negative) Urine WBC 19 H (0-5) /hpf Urine WBC Clumps Occasional H (None) Urine Bacteria Occasional H (None) /hpf Urine Mucus Few H (Occasional) /lpf MTS Gel Crossmatch See Detail 05/12/18 Range/Units 01:15 RBC (4.00-5.30) mil/mm3 Hgb (11.6-15.3) gm/dL Hct (35.0-46.0) % MCH (27.0-34.0) pg MCHC (32.0-36.0) % RDW (11.6-17.2) % Neut % (Auto) (16.0-70.0) % [place] % (Auto) (0.0-8.0) % Polychromasia (0.0-1.9) % Ovalocytes (None) APTT (24.3-30.1) sec Estimated GFR 63 L (>89) mL/min Random Glucose 118 H (74-106) mg/dL Calcium 7.8 L (8.5-10.1) mg/dL AST (15-37) U/L Troponin I (0.02-0.05) ng/mL Urine Clarity (Clear) Urine Protein (Neg-Trace) mg/dL Urine Occult Blood (Negative) Ur Leukocyte Esterase (Negative) Urine WBC (0-5) /hpf Urine WBC Clumps (None) Urine Bacteria (None) /hpf Urine Mucus (Occasional) /lpf MTS Gel Crossmatch Short CBC 05/11/18 05/12/18 Range/Units 10:30 01:15 WBC 5.9 8.2 (4.0-11.0) th/mm3 Hgb 6.5 L* 8.0 L (11.6-15.3) gm/dL Hct 21.0 L 24.2 L (35.0-46.0) % Plt Count 336 264 (150-450) th/mm3 BMP 05/11/18 05/12/18 10:30 01:15 Sodium 141 143 Potassium 3.5 3.8 Chloride 107 106 Carbon Dioxide 23.0 25.7 BUN 10 11 Creatinine 0.93 0.96 Calcium 8.0 L 7.8 L Cardiac Enzymes 05/11/18 Range/Units 10:30 Troponin I Less than 0.02 L (0.02-0.05) ng/mL Liver Function 05/11/18 Range/Units 10:30 Total Bilirubin 0.3 (0.2-1.0) mg/dL AST 11 L (15-37) U/L ALT 16 (10-53) U/L Alkaline Phosphatase 58 (45-117) U/L Albumin 3.4 (3.4-5.0) g/dL Urine 05/11/18 Range/Units 10:30 Urine Color Red (Yellw/Straw) Urine Clarity Cloudy H (Clear) Urine pH 6.0 (5.0-8.5) Ur Specific [place] 1.011 (1.002-1.035) Urine Protein 100 H (Neg-Trace) mg/dL Urine Glucose (UA) Negative (Negative) mg/dL <Rosa Maria Vitale - 05/12/18 11:40> - Imaging Impressions Chest CTA 05/11/18 09:13 CONCLUSION: 1. Isolated small right pleural effusion. 2. Normal heart size without obvious congestive failure or pulmonary embolism. 3. There is no adenopathy. <Rosa Maria Vitale - 05/12/18 11:40> Physical Exam Vital signs: Vital Signs 05/11/18 11:36 05/11/18 11:58 05/11/18 12:00 Temperature Pulse Rate 110 H 106 H 104 H Respiratory Rate Blood Pressure 125/79 135/67 Pulse Oximetry 100 100 100 05/11/18 12:30 05/11/18 13:17 05/11/18 14:12 Temperature 98.4 F Pulse Rate 108 H 114 H 108 H Respiratory Rate 16 18 Blood Pressure 142/65 H 136/67 138/71 Pulse Oximetry 100 99 96 05/11/18 15:45 05/11/18 16:05 05/11/18 16:15 Temperature 100.0 F H 100.1 F H 98.9 F Pulse Rate 117 H 117 H 119 H Respiratory Rate 18 18 18 Blood Pressure 145/78 H 145/73 H 134/71 Pulse Oximetry 99 05/11/18 20:00 05/11/18 21:12 05/11/18 21:30 Temperature 99.1 F 99.1 F 98.5 F Pulse Rate 106 H 106 H 101 H Respiratory Rate 22 17 18 Blood Pressure 136/73 136/73 128/74 Pulse Oximetry 98 98 05/12/18 00:00 05/12/18 07:00 Temperature 98.3 F 98.2 F Pulse Rate 87 81 Respiratory Rate 18 18 Blood Pressure 121/58 L 123/57 L Pulse Oximetry 96 97 Intake & Output 05/11/18 05/12/18 05/12/18 18:59 06:59 18:59 Intake Total 250 / 250 800 / 800 50 / 50 Balance 250 / 250 800 / 800 50 / 50 Weight 86.636 kg Intake: IV 50 / 50 NS Inj 250 ML @ 15 mls/hr IV. 50 / 50 SIG ONCE CEDRIC Rx#:[id number] Oral 250 / 250 Intake (Blood Product) Amt 0 / 0 800 / 800 Rbc As-3 Leukoreduced Unit 0 / 0 400 / 400 [id number] Rbc As-3 Leukoreduced Unit 400 / 400 [id number] Other: # Voids 2 Weight On Admission 86.636 kg <IamRosa Maria L - 05/12/18 11:40> - Constitutional no acute distress <Rosa Maria Vitale - 05/12/18 11:40> - Routine HEENT Exam Head: Present: normocephalic, atraumatic <Rosa Maria Vitale 05/12/18 11:40> Eye: Present: EOMI, PERRL <Rosa Maria Vitale 05/12/18 11:40> ENT: Present: mucous membranes moist <Rosa Maria Vitale 05/12/18 11:40> - Routine Neck Exam Present: supple, full ROM, JVD <Rosa Maria Vitale 05/12/18 11:40> - Routine Respiratory Exam Present: CTA bilaterally. Absent: accessory muscle use, wheezes, crackles < Rosa Maria Vitale 05/12/18 11:40> - Routine Cardiovascular Exam Present: RRR. Absent: murmur <Rosa Maria Vitale 05/12/18 11:40> - Routine Abdominal Exam Present: soft, normoactive bowel sounds. Absent: tenderness, mass <Rosa Maria Vitale 05/12/18 11:40> - Routine Exam External: Absent: ecchymosis <Rosa Maria Vitale 05/12/18 11:40> - Routine Extremities Exam Present: full ROM, pulses intact, normal capillary refill. Absent: cyanosis, clubbing, edema <Rosa Maria Vitale 05/12/18 11:40> - Routine Skin Exam Present: intact. Absent: cyanosis, erythema <Rosa Maria Vitale 05/12/18 11:40 > - Routine Neurological Exam Present: alert, oriented X3, CN II-XII intact <Rosa Maria Vitale 05/12/18 11: 40> Assessment and Plan - Assessment (1) Symptomatic anemia Code(s): D64.9 - Anemia, unspecified Status: Acute (2) Nutrition, metabolism, and development symptoms Code(s): R63.8 - Other symptoms and signs concerning food and fluid intake Status: Acute (3) DVT prophylaxis Status: Acute <Wendy Cedillo - 05/14/18 15:20> (1) Symptomatic anemia Code(s): D64.9 - Anemia, unspecified Status: Acute Plan: Pt found to have a Hb of 6.5 on admission accompanied with symptoms of shortness of breath and tachycardia. CTA negative for PE. She is status-post two units PRBCs with symptomatic improvement. Few pads overnight, suggesting improvement of source. Repeat Hgb 8.0. Will recheck CBC in 3 days. Patient to f/u with PCP and SECTION CHIEF in the next 1-2 weeks. In the meantime patient will have repeat CBC in 3 days. 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 (2) Nutrition, metabolism, and development symptoms Code(s): R63.8 - Other symptoms and signs concerning food and fluid intake Status: Acute Plan: Diet: regular Fluids: tolerating PO Electrolytes: monitor and replace as needed (3) DVT prophylaxis Status: Acute Plan: Ambulatory. No pharmacological treatment indicated, given Hgb <7. Early ambulation & bilateral SCD's <Rosa Maria Vitale - 05/12/18 11:29> - Assessment and Plan 47 yr old female with PMH of fibroids, currently seeing OBGYN Dr. Quintero, Admitted for shortness of breath. Pt found to have a Hb of 6.5 on admission, and a history of heavy periods for 2 weeks after starting OCPs. CTA negative for PE. Patient s/p 2U PRBCs and will be discharged home today. <Rosa Maria Vitale - 05/12/18 11:40> Discussed Condition With: Seen and discussed with Dr. Cedillo, Dr. Rivera, and Dr. Martinez <Rosa Maria Vitale - 05/12/18 11:40> - Attending Attestation Patient seen and examined, discussed with resident team on day of documentation. I agree with assessment and management as documented and discussed with me. Pt without complaints. She feels better after receiving blood transfusions. Appropriate rise in hemoglobin. Discharge home today. <Wendy Cedillo - 05/14/18 15:20>
--- NOTE | 2018-05-12 16:01 | ECG ---
Date Performed: 05/11/2018 Time Performed: 09:07:33 PTAGE: 47 years EKG: SINUS TACHYCARDIA WITH OCCASIONAL ECTOPIC PREMATURE COMPLEXES ABNORMAL RHYTHM ECG NO PREVIOUS TRACING DOCTOR: Zan Hall Interpretating Date/Time 05/12/2018 15:59:56
== END 2018-05-12 10:55 | disposition home or self-care (01) ==
LOC: NEDA 08:52 → NEPE 08:52 → NEPFCDU 13:29
PROVIDERS: ADMIT Family Medicine; ATTEND Family Medicine

== ENCOUNTER 2018-06-03 11:57 | Inpatient (IN) ==
[2018-06-03] MEDS ORDERED: Sod Chloride 0.9% Inj 1,000 ML IV.SIG ONE (14:23)
--- NOTE | 2018-06-03 15:14 | ED ---
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 Patient states that she is diagnosed with fibroids in February has had intermittent, heavy bleeding for about a year and a half. She says she has had increased shortness of breath with exertion and feels her heart rate is increased over the last 5 days. She says it is associated with increased vaginal bleeding with big clots. She denies chest pain, abdominal pain. Says that her pelvic cramping is mild at the worst currently. He says his menstrual period started on May 25 and continues through today. She has been taking iron as prescribed by her ancillary specialist. She says she was initially following Dr. Quintero who placed her on [place] (OCP) but has since stopped because she felt this made her bleeding worse. She is currently following Dr. Orellana and has another appointment within him in 1 month. She is hoping for a hysterectomy at this time. Complaint: vaginal bleeding Onset (ago): month(s) Severity: mild Quality: Cramping Duration: intermittent Relieving factors: menstrual period Exacerbating factors: none Vaginal discharge: blood and blood clots Sexual activity: No Related Data Previous Rx's Medication Instructions Recorded docusate sodium [Colace] 100 mg PO BID #60 cap 05/12/18 ferrous sulfate 325 mg PO TID #90 tab 05/12/18 megestrol 40 mg PO TID #90 tab 05/12/18 Allergies Allergy/AdvReac Type Severity Reaction Status Date / Time No Known Allergies Allergy Uncoded 06/30/17 08:20 Review of Systems ROS: all other systems reviewed are negative [facility] Medical History Medical History HPV (human papilloma virus) infection (Acute) History of hypothyroidism (Acute) Uterine fibroid (Acute) Vulvar cyst (Acute) Surgical History Surgical History Hx of cone biopsy of cervix (Acute) Hx of total cystectomy (Acute) Social History Social History Substance History: No History of Abuse Second Hand Smoke Exposure: No Smoking Status: Never smoker Tobacco Type: Cigarettes How Often Do You Have a Drink Containing Alcohol: Monthly or less Recent Travel in [facility] within the Last 8 Weeks: No Recent Out of Country Travel within the Last 8 Weeks: No Immunization History Tetanus Immunization: >5 Years Hx Influenza Vaccine This Season: No Exam Narrative Exam Narrative: GENERAL: WD, WN in NAD SKIN: Focused skin assessment warm/dry. Pale mucus membranes HEAD: Atraumatic. Normocephalic. EYES: Pupils equal and round. No scleral icterus. No injection or drainage. ENT: No nasal bleeding or discharge. Mucous membranes pink and moist. NECK: Trachea midline. No JVD. CARDIOVASCULAR: Regular rate and rhythm. No murmur appreciated. RESPIRATORY: No accessory muscle use. Clear to auscultation. Breath sounds equal bilaterally. GASTROINTESTINAL: Abdomen soft, non-tender, nondistended. Hepatic and splenic margins not palpable. No CVAT MUSCULOSKELETAL: No obvious deformities. No clubbing. No cyanosis. No edema. NEUROLOGICAL: Awake and alert. No obvious cranial nerve deficits. Motor grossly within normal limits. Normal speech. PSYCHIATRIC: Appropriate mood and affect; insight and judgment normal. Course Initial Documented Vital Signs Temperature 98.3 F 06/03/18 12:00 Respiratory Rate 16 06/03/18 12:00 Blood Pressure 157/74 H 06/03/18 12:00 Pulse Oximetry 100 06/03/18 12:00 Last Documented Vital Signs Temperature 99.0 F 06/03/18 18:31 Pulse Rate 97 H 06/03/18 18:31 Respiratory Rate 17 06/03/18 18:31 Blood Pressure 115/64 06/03/18 18:31 Pulse Oximetry 100 06/03/18 18:31 Medical Decision Making [facility] Narrative Medical decision making narrative: 47-year-old female with a known history of fibroids presents to the emergency department for the second time within a month for evaluation. She states she spoke with her ancillary specialist, Dr. Garza who recommended she come in today. States that she has increased shortness of breath with exertion. She has had her menstrual period since May 25. Says over the last 5 days the vaginal bleeding has been heavier and notes clots within the bleeding. Her cramping has improved after use of ibuprofen. She states she is due to follow up with her ancillary specialist in 1 month. Patient states she is not currently sexually active. Labs are significant for H/H6 0.1/18.9 2 units ordered for infusion. I spoke with the OB hospitalist, Dr. Delfin Lang who initially accepted patient but patient was transferred to Dr. Hardy's service. Consult placed to Dr. Valera. Medical Screen Exam Complete: Yes Emergency Medical Condition: Yes Differential Diagnosis Differential Diagnosis: Anemia, dehydration, iron deficiency Lab Data Result diagrams: 06/03/18 14:35 06/03/18 14:35 POC Results POC Urine Results Negative Lab Results 06/03/18 06/03/18 06/03/18 Range/Units 14:35 14:35 14:35 WBC 9.5 (4.0-11.0) th/mm3 RBC 2.14 L (4.00-5.30) mil/mm3 Hgb 6.1 L* (11.6-15.3) gm/dL Hct 18.9 L* (35.0-46.0) % MCV 88.2 (80.0-100.0) fL MCH 28.3 (27.0-34.0) pg MCHC 32.1 (32.0-36.0) % RDW 21.3 H (11.6-17.2) % Plt Count 374 D (150-450) th/mm3 MPV 7.3 (7.0-11.0) fL Prelim Diff (Auto) Slide review pending Neut % (Auto) 72.2 H (16.0-70.0) % Lymph % (Auto) 20.2 (9.0-44.0) % [place] % (Auto) 6.1 (0.0-8.0) % Eos % (Auto) 1.1 (0.0-4.0) % Baso % (Auto) 0.4 (0.0-2.0) % Neut # (Auto) 6.9 (1.8-7.7) th/mm3 Lymph # (Auto) 1.9 (1.0-4.8) th/mm3 [place] # (Auto) 0.6 (0.0-0.9) th/mm3 Eos # (Auto) 0.1 (0.0-0.4) th/mm3 Baso # (Auto) 0.0 (0.0-0.2) th/mm3 WBC Differential . Diff Scan Auto diff confirmed Differential Comment . Platelet Estimate Normal (Normal) Platelet Morphology Normal (Normal) Ovalocytes 1+ H (None) Keratocytes Occ H (None) Sodium 141 (136-145) meq/L Potassium 4.1 (3.5-5.1) meq/L Chloride 108 H (98-107) meq/L Carbon Dioxide 25.3 (21.0-32.0) meq/L Anion Gap 8 (5-15) meq/L BUN 13 (7-18) mg/dL Creatinine 0.75 (0.50-1.00) mg/dL Estimated GFR 84 L (>89) mL/min Random Glucose 97 (74-106) mg/dL Calcium 8.2 L (8.5-10.1) mg/dL Iron (50-170) mcg/dL TIBC (250-450) mcg/dL % Saturation (20-50) % Ferritin (8-252) ng/mL Total Bilirubin 0.2 (0.2-1.0) mg/dL AST 18 (15-37) U/L ALT 19 (10-53) U/L Alkaline Phosphatase 69 (45-117) U/L Total Protein 6.3 L (6.4-8.2) g/dL Albumin 3.3 L (3.4-5.0) g/dL Urine Color (Yellw/Straw) Urine Clarity (Clear) Urine pH (5.0-8.5) Ur Specific [place] (1.002-1.035) Urine Protein (Neg-Trace) mg/dL Urine Glucose (UA) (Negative) mg/dL Urine Ketones (Negative) mg/dL Urine Occult Blood (Negative) Urine Nitrate (Negative) Urine Bilirubin (Negative) Urine Urobilinogen (Less than 2) mg/dL Ur Leukocyte Esterase (Negative) Urine RBC (0-3) /hpf Urine WBC (0-5) /hpf Ur Squamous Epith Cells (0-5) /hpf Calcium Oxalate Crystal (None) /hpf Urine Bacteria (None) /hpf Urine Mucus (Occasional) /lpf Micro UA Comment Ur Microscopic Review Urine Culture Comments Blood Type B Negative Antibody Screen Negative MTS Gel Crossmatch 06/03/18 06/03/18 06/03/18 Range/Units 14:35 14:35 14:35 WBC (4.0-11.0) th/mm3 RBC (4.00-5.30) mil/mm3 Hgb (11.6-15.3) gm/dL Hct (35.0-46.0) % MCV (80.0-100.0) fL MCH (27.0-34.0) pg MCHC (32.0-36.0) % RDW (11.6-17.2) % Plt Count (150-450) th/mm3 MPV (7.0-11.0) fL Prelim Diff (Auto) Neut % (Auto) (16.0-70.0) % Lymph % (Auto) (9.0-44.0) % [place] % (Auto) (0.0-8.0) % Eos % (Auto) (0.0-4.0) % Baso % (Auto) (0.0-2.0) % Neut # (Auto) (1.8-7.7) th/mm3 Lymph # (Auto) (1.0-4.8) th/mm3 [place] # (Auto) (0.0-0.9) th/mm3 Eos # (Auto) (0.0-0.4) th/mm3 Baso # (Auto) (0.0-0.2) th/mm3 WBC Differential Diff Scan Differential Comment Platelet Estimate (Normal) Platelet Morphology (Normal) Ovalocytes (None) Keratocytes (None) Sodium (136-145) meq/L Potassium (3.5-5.1) meq/L Chloride (98-107) meq/L Carbon Dioxide (21.0-32.0) meq/L Anion Gap (5-15) meq/L BUN (7-18) mg/dL Creatinine (0.50-1.00) mg/dL Estimated GFR (>89) mL/min Random Glucose (74-106) mg/dL Calcium (8.5-10.1) mg/dL Iron 24 L (50-170) mcg/dL TIBC 405 (250-450) mcg/dL % Saturation 5.9 L (20-50) % Ferritin 21 Cancelled (8-252) ng/mL Total Bilirubin (0.2-1.0) mg/dL AST (15-37) U/L ALT (10-53) U/L Alkaline Phosphatase (45-117) U/L Total Protein (6.4-8.2) g/dL Albumin (3.4-5.0) g/dL Urine Color Yellow (Yellw/Straw) Urine Clarity Cloudy H (Clear) Urine pH 5.0 (5.0-8.5) Ur Specific [place] 1.026 (1.002-1.035) Urine Protein Negative (Neg-Trace) mg/dL Urine Glucose (UA) Negative (Negative) mg/dL Urine Ketones Trace H (Negative) mg/dL Urine Occult Blood Large H (Negative) Urine Nitrate Negative (Negative) Urine Bilirubin Negative (Negative) Urine Urobilinogen Less than 2 (Less than 2) mg/dL Ur Leukocyte Esterase Negative (Negative) Urine RBC 114 H (0-3) /hpf Urine WBC Less than 1 (0-5) /hpf Ur Squamous Epith Cells <1 (0-5) /hpf Calcium Oxalate Crystal Moderate H (None) /hpf Urine Bacteria Few H (None) /hpf Urine Mucus Moderate H (Occasional) /lpf Micro UA Comment Culture not ind Ur Microscopic Review Not Reportable Urine Culture Comments Culture not ind Blood Type Antibody Screen MTS Gel Crossmatch 06/03/18 Range/Units 17:13 WBC (4.0-11.0) th/mm3 RBC (4.00-5.30) mil/mm3 Hgb (11.6-15.3) gm/dL Hct (35.0-46.0) % MCV (80.0-100.0) fL MCH (27.0-34.0) pg MCHC (32.0-36.0) % RDW (11.6-17.2) % Plt Count (150-450) th/mm3 MPV (7.0-11.0) fL Prelim Diff (Auto) Neut % (Auto) (16.0-70.0) % Lymph % (Auto) (9.0-44.0) % [place] % (Auto) (0.0-8.0) % Eos % (Auto) (0.0-4.0) % Baso % (Auto) (0.0-2.0) % Neut # (Auto) (1.8-7.7) th/mm3 Lymph # (Auto) (1.0-4.8) th/mm3 [place] # (Auto) (0.0-0.9) th/mm3 Eos # (Auto) (0.0-0.4) th/mm3 Baso # (Auto) (0.0-0.2) th/mm3 WBC Differential Diff Scan Differential Comment Platelet Estimate (Normal) Platelet Morphology (Normal) Ovalocytes (None) Keratocytes (None) Sodium (136-145) meq/L Potassium (3.5-5.1) meq/L Chloride (98-107) meq/L Carbon Dioxide (21.0-32.0) meq/L Anion Gap (5-15) meq/L BUN (7-18) mg/dL Creatinine (0.50-1.00) mg/dL Estimated GFR (>89) mL/min Random Glucose (74-106) mg/dL Calcium (8.5-10.1) mg/dL Iron (50-170) mcg/dL TIBC (250-450) mcg/dL % Saturation (20-50) % Ferritin (8-252) ng/mL Total Bilirubin (0.2-1.0) mg/dL AST (15-37) U/L ALT (10-53) U/L Alkaline Phosphatase (45-117) U/L Total Protein (6.4-8.2) g/dL Albumin (3.4-5.0) g/dL Urine Color (Yellw/Straw) Urine Clarity (Clear) Urine pH (5.0-8.5) Ur Specific [place] (1.002-1.035) Urine Protein (Neg-Trace) mg/dL Urine Glucose (UA) (Negative) mg/dL Urine Ketones (Negative) mg/dL Urine Occult Blood (Negative) Urine Nitrate (Negative) Urine Bilirubin (Negative) Urine Urobilinogen (Less than 2) mg/dL Ur Leukocyte Esterase (Negative) Urine RBC (0-3) /hpf Urine WBC (0-5) /hpf Ur Squamous Epith Cells (0-5) /hpf Calcium Oxalate Crystal (None) /hpf Urine Bacteria (None) /hpf Urine Mucus (Occasional) /lpf Micro UA Comment Ur Microscopic Review Urine Culture Comments Blood Type Antibody Screen MTS Gel Crossmatch See Detail Discharge Plan Discharge Disposition Patient Disposition: 30 Still Patient Discharge Condition Condition: Stable Discharge Details Diagnosis: Anemia, Fibroid, uterine Physicians Team ED Provider: Noah Hagan ED Midlevel Provider: Lena Martinez Primary Care Provider: Primary Care Susanne Britt Attending Provider: Gabrielle Grewal Other Providers: Radha Valera Status ED Status: Left Department Discharge Information Discharge Date/Time: 06/03/18 18:11
[2018-06-03 15:30] LABS: Baso % (Auto) 0.4 % (0.0-2.0); Eos # (Auto) 0.1 th/mm3 (0.0-0.4); Eos % (Auto) 1.1 % (0.0-4.0); Lymph # (Auto) 1.9 th/mm3 (1.0-4.8); Lymph % (Auto) 20.2 % (9.0-44.0); Mean Corpuscular HGB Conc 32.1 % (32.0-36.0); Mean Corpuscular Hemoglobin 28.3 pg (27.0-34.0); Mean Corpuscular Volume 88.2 fL (80.0-100.0); Mean Platelet Volume 7.3 fL (7.0-11.0); Mono # (Auto) 0.6 th/mm3 (0.0-0.9); Mono % (Auto) 6.1 % (0.0-8.0); Neut # (Auto) 6.9 th/mm3 (1.8-7.7); Neut % (Auto) 72.2 % (16.0-70.0); Platelet Count 374 th/mm3 (150-450); Red Blood Count 2.14 mil/mm3 (4.00-5.30); Red Cell Distribution Width 21.3 % (11.6-17.2); White Blood Count 9.5 th/mm3 (4.0-11.0)
[2018-06-03 15:35] LABS: Bacteria,Urine Few /hpf; Bilirubin,Urine Negative (Negative); Calcium Oxalate Crystals,Urine Moderate /hpf; Clarity,Urine Cloudy (Clear); Color,Urine Yellow (Yellw/Straw); Glucose,Urine (UA) Negative (Negative); Leukocyte Esterase,Urine Negative (Negative); Mucus,Urine Moderate /lpf (Occasional); Nitrite,Urine Negative (Negative); Specific Gravity,Urine 1.026 (1.002-1.035); Squamous Epithelial Cell,Urine <1 /hpf (0-5)
[2018-06-03 15:47] LABS: Hematocrit 18.9 % (35.0-46.0); Hemoglobin 6.1 gm/dL (11.6-15.3)
[2018-06-03 15:51] LABS: Alanine Aminotransferase 19 U/L (10-53); Albumin 3.3 g/dL (3.4-5.0); Anion Gap 8 meq/L (5-15); Aspartate Aminotransferase 18 U/L (15-37); Blood Urea Nitrogen 13 mg/dL (7-18); Calcium 8.2 mg/dL (8.5-10.1); Carbon Dioxide 25.3 meq/L (21.0-32.0); Chloride 108 meq/L (98-107); Glomerular Filtration Rate 84 mL/min (>89); Glucose,Random 97 mg/dL (74-106); Potassium 4.1 meq/L (3.5-5.1); Sodium 141 meq/L (136-145)
[2018-06-03 15:52] LABS: Alkaline Phosphatase 69 U/L (45-117); Total Protein 6.3 g/dL (6.4-8.2)
[2018-06-03] MEDS ORDERED: Sodium Chlor 0.9% Inj 250 ML IV.SIG SCH ×2 (16:00→18:00)
[2018-06-03 16:57] LABS: % Iron Saturation 5.9 % (20-50)
[2018-06-03 17:30] LABS: Platelet Estimate Normal (Normal); Platelet Morphology Normal (Normal)
[2018-06-03 17:32] LABS: Ovalocytes 1+
--- NOTE | 2018-06-03 18:00 | P.CONOB ---
History of Present Illness Consult date: 06/03/18 Reason for Consult: Vaginal bleeding/anemia Primary Care Physician: Dr. Donna Quintero Chief Complaint: 47-year-old nulligravida complaining of heavy vaginal bleeding 9 days History of Present Illness: 47-year-old nulligravida known history of fibroid uterus presents to emergency department complaining of heavy vaginal bleeding with symptoms feeling lightheaded and palpitations. Review of Systems Constitutional: Reports fatigue Cardiovascular: Reports fast heart rate, Denies chest pain, Denies chest pain at rest Gastrointestinal: Denies abdominal pain Genitourinary: Reports abnormal periods, Reports abnormal vaginal bleeding, Reports bleeding between periods Musculoskeletal: Denies abnormal walking Neurologic: Denies abnormal hearing, Denies abnormal movements Endocrine: Denies cold intolerance PMFSH - History History Provided By: Patient - Medical History Medical History: Medical History (Last Updated 05/11/18 @ 20:32 by Anu Villasenor MD, R1) HPV (human papilloma virus) infection History of hypothyroidism Uterine fibroid Vulvar cyst - Surgical History Surgical History: Surgical History (Last Updated 05/11/18 @ 20:33 by Anu Villasenor MD, R1 ) Hx of cone biopsy of cervix Hx of total cystectomy - Tobacco History Second Hand Smoke Exposure: No Tobacco Use In Past 30 Days: No Smoking Status: Never smoker Tobacco Type: Cigarettes - Alcohol History How Often Do You Have a Drink Containing Alcohol: Monthly or less - Substance Use History Substance History: No History of Abuse - Travel History Recent Travel in the [place] Within the Last 8 Weeks: No Recent Travel Out of the Country Within the Last 8 Weeks: No - Immunization History Tetanus Immunization: >5 Years Hx Influenza Vaccine This Season: No Medications and Allergies Active Medications: Active Medications Sodium Chloride (Ns Inj) 250 mls @ 15 mls/hr IV.SIG ONCE CEDRIC Stop: 06/04/18 08:39 Sodium Chloride (Ns Inj) 250 mls @ 15 mls/hr IV.SIG ONCE CEDRIC Stop: 06/04/18 10:39 Sodium Chloride (Ns Flush) 2 ml IV.FLUSH PRN PRN PRN Reason: FLUSH AFTER USING IV ACCESS Allergies Allergy/AdvReac Type Severity Reaction Status Date / Time No Known Allergies Allergy Uncoded 06/30/17 08:20 Exam Vital signs: Vital Signs 06/03/18 12:00 Temperature 98.3 F Respiratory Rate 16 Blood Pressure 157/74 H Pulse Oximetry 100 Intake & Output 06/02/18 06/03/18 06/03/18 18:59 06:59 18:59 Weight 86.183 kg - Constitutional no acute distress, average body habitus - Routine HEENT Exam Head: Present: normocephalic, atraumatic Eye: Present: PERRL ENT: Present: mucous membranes moist - Routine Neck Exam Present: supple - Routine Chest/Breast/Axilla Exam Breast: Absent: tenderness - Routine Respiratory Exam Present: CTA bilaterally - Routine Cardiovascular Exam Present: tachycardia (Auditory mild) - Routine Exam External: Present: normal urethra appearance Perineum Description: Intact Comments: Pelvic exam uterus palpates to approximately 11-12 weeks size consistent with myomatous uterus adnexa are not appreciated on exam UPT in the emergency department is negative. Patient's pad is soaked with menstrual blood the blood appears to be quite light and liquid appearance and color - Routine Extremities Exam Absent: cyanosis - Routine Skin Exam Present: pallor (Pallor noted of the sclera no capillary refill of the thenar eminence) - Routine Neurological Exam Present: alert, oriented X3 Results - Labs CBC & Chem 7: 06/03/18 14:35 06/03/18 14:35 Labs: Laboratory Results - last 24 hr 06/03/18 06/03/18 06/03/18 14:35 14:35 14:35 WBC 9.5 RBC 2.14 L Hgb 6.1 L* Hct 18.9 L* MCV 88.2 MCH 28.3 MCHC 32.1 RDW 21.3 H Plt Count 374 D MPV 7.3 Prelim Diff (Auto) Slide review pending Neut % (Auto) 72.2 H Lymph % (Auto) 20.2 [place] % (Auto) 6.1 Eos % (Auto) 1.1 Baso % (Auto) 0.4 Neut # (Auto) 6.9 Lymph # (Auto) 1.9 [place] # (Auto) 0.6 Eos # (Auto) 0.1 Baso # (Auto) 0.0 WBC Differential . Diff Scan Auto diff confirmed Differential Comment . Platelet Estimate Normal Platelet Morphology Normal Ovalocytes 1+ H Keratocytes Occ H Sodium 141 Potassium 4.1 Chloride 108 H Carbon Dioxide 25.3 Anion Gap 8 BUN 13 Creatinine 0.75 Estimated GFR 84 L Random Glucose 97 Calcium 8.2 L Iron TIBC % Saturation Ferritin Total Bilirubin 0.2 AST 18 ALT 19 Alkaline Phosphatase 69 Total Protein 6.3 L Albumin 3.3 L Urine Color Urine Clarity Urine pH Ur Specific [place] Urine Protein Urine Glucose (UA) Urine Ketones Urine Occult Blood Urine Nitrate Urine Bilirubin Urine Urobilinogen Ur Leukocyte Esterase Urine RBC Urine WBC Ur Squamous Epith Cells Calcium Oxalate Crystal Urine Bacteria Urine Mucus Micro UA Comment Ur Microscopic Review Urine Culture Comments Blood Type B Negative Antibody Screen Negative MTS Gel Crossmatch 06/03/18 06/03/18 06/03/18 14:35 14:35 14:35 WBC RBC Hgb Hct MCV MCH MCHC RDW Plt Count MPV Prelim Diff (Auto) Neut % (Auto) Lymph % (Auto) [place] % (Auto) Eos % (Auto) Baso % (Auto) Neut # (Auto) Lymph # (Auto) [place] # (Auto) Eos # (Auto) Baso # (Auto) WBC Differential Diff Scan Differential Comment Platelet Estimate Platelet Morphology Ovalocytes Keratocytes Sodium Potassium Chloride Carbon Dioxide Anion Gap BUN Creatinine Estimated GFR Random Glucose Calcium Iron 24 L TIBC 405 % Saturation 5.9 L Ferritin 21 Cancelled Total Bilirubin AST ALT Alkaline Phosphatase Total Protein Albumin Urine Color Yellow Urine Clarity Cloudy H Urine pH 5.0 Ur Specific [place] 1.026 Urine Protein Negative Urine Glucose (UA) Negative Urine Ketones Trace H Urine Occult Blood Large H Urine Nitrate Negative Urine Bilirubin Negative Urine Urobilinogen Less than 2 Ur Leukocyte Esterase Negative Urine RBC 114 H Urine WBC Less than 1 Ur Squamous Epith Cells <1 Calcium Oxalate Crystal Moderate H Urine Bacteria Few H Urine Mucus Moderate H Micro UA Comment Culture not ind Ur Microscopic Review Not Reportable Urine Culture Comments Culture not ind Blood Type Antibody Screen MTS Gel Crossmatch 06/03/18 17:13 WBC RBC Hgb Hct MCV MCH MCHC RDW Plt Count MPV Prelim Diff (Auto) Neut % (Auto) Lymph % (Auto) [place] % (Auto) Eos % (Auto) Baso % (Auto) Neut # (Auto) Lymph # (Auto) [place] # (Auto) Eos # (Auto) Baso # (Auto) WBC Differential Diff Scan Differential Comment Platelet Estimate Platelet Morphology Ovalocytes Keratocytes Sodium Potassium Chloride Carbon Dioxide Anion Gap BUN Creatinine Estimated GFR Random Glucose Calcium Iron TIBC % Saturation Ferritin Total Bilirubin AST ALT Alkaline Phosphatase Total Protein Albumin Urine Color Urine Clarity Urine pH Ur Specific [place] Urine Protein Urine Glucose (UA) Urine Ketones Urine Occult Blood Urine Nitrate Urine Bilirubin Urine Urobilinogen Ur Leukocyte Esterase Urine RBC Urine WBC Ur Squamous Epith Cells Calcium Oxalate Crystal Urine Bacteria Urine Mucus Micro UA Comment Ur Microscopic Review Urine Culture Comments Blood Type Antibody Screen MTS Gel Crossmatch See Detail Assessment and Plan - Diagnosis (1) Symptomatic anemia Code(s): D64.9 - Anemia, unspecified Status: Acute (2) Fibroid, uterine Code(s): D25.9 - Leiomyoma of uterus, unspecified Status: Acute (3) Hypothyroidism Code(s): E03.9 - Hypothyroidism, unspecified Status: Chronic - Plan Discussed with the nurse practitioner agree with transfusion of the patient. I have seen and evaluated the patient with Dr. Peace. Discussed with the patient she reports that she has been on low-dose oral contraception which was suboptimal made bleeding worse per pt, she has also had an endometrial biopsy which patient self reports is negative. 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 This is the second blood transfusion that the patient will be receiving the last was May 11. I advised the patient to return back to her special makeup fx artist instructor to date patient has had every intervention from a GENETIC COUNSELOR standpoint/workup. At this point she needs to consider surgical intervention. I have discussed the case with Dr. Gilmore who is covering and agrees with the plan of care he will also inform her primary special makeup fx artist instructor to follow the patient in the a.m. (2) Fibroid, uterine Qualifiers: Uterine leiomyoma location: unspecified location Qualified Code(s): D25.9 - Leiomyoma of uterus, unspecified
--- NOTE | 2018-06-03 18:26 | P.HP ---
History of Present Illness Primary Care Physician: No Primary Care Physician Chief Complaint: 47-year-old nulligravida complaining of heavy vaginal bleeding 9 days History of Present Illness: Ms. Maurer is a 47-year-old female 0 para 0 menarche at 15 years old who had regular cycles every 28 days 3-4 days duration. Was doing well until about 2 years ago at that point he was she was diagnosed with some thyroid disorder and was placed on Synthroid for a while about a year. Patient states that changes in her cycles coincided with this. She was taken off Synthroid since July and per patient her levels have been good. She has also a follow-up ultrasound and is being followed by group leader semiconductor testing. This time patient has been having longer duration of menstrual cycle lasting for 7-10 days 5 days heavy with clots. Complains of easy fatigability and shortness of breath. In the past at one point she was started on some oral contraceptive pills which she says did not help. she was seen by Dr. Garza of the DIRECTOR OF COUNSELING service. She was taking megestrol 40 mg 3 times daily which she says does not help and she stopped it on her own. She continues to take iron pills 325 3 times daily along with Colace. Her hemoglobin from May 11 was when she was admitted here was 6.5 hematocrit of 21. Patient received 2 units blood transfusion and was discharged with a hemoglobin of 8 and a hematocrit of 24.2. On follow-up with her SKATING RINK MANAGER complaining of above symptoms and was sent here to ER and on evaluation was noted to have a low hemoglobin. Patient is ordered for 2 units blood transfusion. Inpatient Certification: I certify that the inpatient services were ordered in accordance with Medicare regulations governing the order. This includes certification that hospital inpatient services are reasonable and necessary and in the case of services not specified as inpatient-only under 42 CFR 419.22(n), that they are appropriately provided as inpatient services in accordance to with the 2-midnight benchmark under 43 CFR 412.3(e) Estimated Total Length of Stay (Days): 2 Plans for Post Hospital Care: Not yet determined Review of Systems Patient denies any fever chills no cough no weight loss denies any other bleeding tendencies denies any melena or hematochezia no urinary symptoms PMFSH - History History Provided By: Patient - Medical History Medical History: Medical History (Last Updated 08/27/18 @ 20:32 by Anu Villasenor MD, R1) HPV (human papilloma virus) infection History of hypothyroidism Uterine fibroid Vulvar cyst - Surgical History Surgical History: Surgical History (Last Updated 05/11/18 @ 20:33 by Anu Villasenor MD, R1 ) Hx of cone biopsy of cervix Hx of total cystectomy - Tobacco History Second Hand Smoke Exposure: No Tobacco Use In Past 30 Days: No Smoking Status: Never smoker Tobacco Type: Cigarettes - Alcohol History How Often Do You Have a Drink Containing Alcohol: Monthly or less - Substance Use History Substance History: No History of Abuse - Travel History Recent Travel in the [place] Within the Last 8 Weeks: No Recent Travel Out of the Country Within the Last 8 Weeks: No - Immunization History Tetanus Immunization: >5 Years Hx Influenza Vaccine This Season: No Medications and Allergies Active Medications: Active Medications Sodium Chloride (Ns Inj) 250 mls @ 15 mls/hr IV.SIG ONCE CEDRIC Stop: 06/04/18 08:39 Sodium Chloride (Ns Inj) 250 mls @ 15 mls/hr IV.SIG ONCE CEDRIC Stop: 06/04/18 10:39 Sodium Chloride (Ns Flush) 2 ml IV.FLUSH PRN PRN PRN Reason: FLUSH AFTER USING IV ACCESS Allergies Allergy/AdvReac Type Severity Reaction Status Date / Time No Known Allergies Allergy Uncoded 06/30/17 08:20 Exam Vital signs: Vital Signs 06/03/18 12:00 06/03/18 18:09 06/03/18 18:14 Temperature 98.3 F 98.3 F Pulse Rate 89 102 H Respiratory Rate 16 18 18 Blood Pressure 157/74 H 114/69 Pulse Oximetry 100 Intake & Output 06/02/18 06/03/18 06/03/18 18:59 06:59 18:59 Intake Total 0 / 0 Balance 0 / 0 Weight 86.183 kg Intake: Intake (Blood Product) Amt 0 / 0 Rbc As-3 Leukoreduced Unit 0 / 0 [id number] Narrative: Awake alert oriented 3 Pale palpebral conjunctiva Anicteric sclerae No nuchal rigidity Chest lungs clear breath sounds no rales Regular rhythm Abdomen soft good bowel sounds Extremities no edema Neurologic exam nonfocal Results - Labs CBC & Chem 7: 06/04/18 06:00 06/03/18 14:35 Labs: Laboratory Results - last 24 hr 06/03/18 06/03/18 06/03/18 14:35 14:35 14:35 WBC 9.5 RBC 2.14 L Hgb 6.1 L* Hct 18.9 L* MCV 88.2 MCH 28.3 MCHC 32.1 RDW 21.3 H Plt Count 374 D MPV 7.3 Prelim Diff (Auto) Slide review pending Neut % (Auto) 72.2 H Lymph % (Auto) 20.2 [place] % (Auto) 6.1 Eos % (Auto) 1.1 Baso % (Auto) 0.4 Neut # (Auto) 6.9 Lymph # (Auto) 1.9 [place] # (Auto) 0.6 Eos # (Auto) 0.1 Baso # (Auto) 0.0 WBC Differential . Diff Scan Auto diff confirmed Differential Comment . Platelet Estimate Normal Platelet Morphology Normal Ovalocytes 1+ H Keratocytes Occ H Sodium 141 Potassium 4.1 Chloride 108 H Carbon Dioxide 25.3 Anion Gap 8 BUN 13 Creatinine 0.75 Estimated GFR 84 L Random Glucose 97 Calcium 8.2 L Iron TIBC % Saturation Ferritin Total Bilirubin 0.2 AST 18 ALT 19 Alkaline Phosphatase 69 Total Protein 6.3 L Albumin 3.3 L Urine Color Urine Clarity Urine pH Ur Specific [place] Urine Protein Urine Glucose (UA) Urine Ketones Urine Occult Blood Urine Nitrate Urine Bilirubin Urine Urobilinogen Ur Leukocyte Esterase Urine RBC Urine WBC Ur Squamous Epith Cells Calcium Oxalate Crystal Urine Bacteria Urine Mucus Micro UA Comment Ur Microscopic Review Urine Culture Comments Blood Type B Negative Antibody Screen Negative MTS Gel Crossmatch 06/03/18 06/03/18 06/03/18 14:35 14:35 14:35 WBC RBC Hgb Hct MCV MCH MCHC RDW Plt Count MPV Prelim Diff (Auto) Neut % (Auto) Lymph % (Auto) [place] % (Auto) Eos % (Auto) Baso % (Auto) Neut # (Auto) Lymph # (Auto) [place] # (Auto) Eos # (Auto) Baso # (Auto) WBC Differential Diff Scan Differential Comment Platelet Estimate Platelet Morphology Ovalocytes Keratocytes Sodium Potassium Chloride Carbon Dioxide Anion Gap BUN Creatinine Estimated GFR Random Glucose Calcium Iron 24 L TIBC 405 % Saturation 5.9 L Ferritin 21 Cancelled Total Bilirubin AST ALT Alkaline Phosphatase Total Protein Albumin Urine Color Yellow Urine Clarity Cloudy H Urine pH 5.0 Ur Specific [place] 1.026 Urine Protein Negative Urine Glucose (UA) Negative Urine Ketones Trace H Urine Occult Blood Large H Urine Nitrate Negative Urine Bilirubin Negative Urine Urobilinogen Less than 2 Ur Leukocyte Esterase Negative Urine RBC 114 H Urine WBC Less than 1 Ur Squamous Epith Cells <1 Calcium Oxalate Crystal Moderate H Urine Bacteria Few H Urine Mucus Moderate H Micro UA Comment Culture not ind Ur Microscopic Review Not Reportable Urine Culture Comments Culture not ind Blood Type Antibody Screen MTS Gel Crossmatch 06/03/18 17:13 WBC RBC Hgb Hct MCV MCH MCHC RDW Plt Count MPV Prelim Diff (Auto) Neut % (Auto) Lymph % (Auto) [place] % (Auto) Eos % (Auto) Baso % (Auto) Neut # (Auto) Lymph # (Auto) [place] # (Auto) Eos # (Auto) Baso # (Auto) WBC Differential Diff Scan Differential Comment Platelet Estimate Platelet Morphology Ovalocytes Keratocytes Sodium Potassium Chloride Carbon Dioxide Anion Gap BUN Creatinine Estimated GFR Random Glucose Calcium Iron TIBC % Saturation Ferritin Total Bilirubin AST ALT Alkaline Phosphatase Total Protein Albumin Urine Color Urine Clarity Urine pH Ur Specific [place] Urine Protein Urine Glucose (UA) Urine Ketones Urine Occult Blood Urine Nitrate Urine Bilirubin Urine Urobilinogen Ur Leukocyte Esterase Urine RBC Urine WBC Ur Squamous Epith Cells Calcium Oxalate Crystal Urine Bacteria Urine Mucus Micro UA Comment Ur Microscopic Review Urine Culture Comments Blood Type Antibody Screen MTS Gel Crossmatch See Detail Caprini VTE Risk Assessment Caprini VTE Risk Assessment: No/Low Risk (score <= 1) VTE Pharmacological Exception Reason: Hemorrhage (menorrhagia) Caprini Risk Assessment Model: Point Value = 1 Point Value = 2 Point Value = 3 Point Value = 5 Age 41-60 Minor surgery BMI > 25 kg/m2 Swollen legs Varicose veins or History of unexplained or recurrent spontaneous Oral contraceptives or hormone replacement Sepsis (< 1 month) Serious lung disease, including pneumonia (< 1 month) Abnormal pulmonary function Acute myocardial infarction Congestive heart failure (< 1 month) History of inflammatory bowel disease Medical patient at bed rest Age 61-74 Arthroscopic surgery Major open surgery (> 45 min) Laparoscopic surgery (> 45 min) Malignancy Confined to bed (> 72 hours) Immobilizing plaster cast Central venous access Age >= 75 History of VTE Family history of VTE Factor V Leiden Prothrombin [id number] Lupus anticoagulant Anticardiolipin antibodies Elevated serum homocysteine Heparin-induced thrombocytopenia Other congenital or acquired thrombophilia Stroke (< 1 month) Elective arthroplasty Hip, pelvis, or leg fracture Acute spinal cord injury (< 1 month) Prophylaxis Regimen: Total Risk Factor Score Risk Level Prophylaxis Regimen 0-1 Low Early ambulation 2 Moderate Order ONE of the following: *Sequential Compression Device (SCD) *Heparin 5000 units SQ BID 3-4 Higher Order ONE of the following medications: *Heparin 5000 units SQ TID *Enoxaparin/Lovenox 40 mg SQ daily (WT < 150 kg, CrCl > 30 mL/min) *Enoxaparin/Lovenox 30 mg SQ daily (WT < 150 kg, CrCl > 10-29 mL/min) *Enoxaparin/Lovenox 30 mg SQ BID (WT < 150 kg, CrCl > 30 mL/min) AND/OR *Sequential Compression Device (SCD) 5 or more Highest Order ONE of the following medications: *Heparin 5000 units SQ TID (Preferred with Epidurals) *Enoxaparin/Lovenox 40 mg SQ daily (WT < 150 kg, CrCl > 30 mL/min) *Enoxaparin/Lovenox 30 mg SQ daily (WT < 150 kg, CrCl > 10-29 mL/min) *Enoxaparin/Lovenox 30 mg SQ BID (WT < 150 kg, CrCl > 30 mL/min) AND *Sequential Compression Device (SCD) Assessment and Plan - Plan 47-year-old female Severe anemia, recurrent - due Menorrhagia secondary to possible uterine fibroids - Patient was promptly seen by DIRECTOR OF COUNSELING and they will continue to follow patient -re : surgery -As outpatient followed by DIRECTOR OF COUNSELING MD - Dr. Garza -Patient ordered for 2 units blood transfusion -Continue on iron 325 mg 3 times daily -CBC in a.m. check Iron stores. consider IV Iron x 3 days if low History of hypothyroidism at one point on meds. Now Off medications. Check a TSH TEDS, early ambulation as tolerated NO chemical prophylaxis due to active bleeding Discussed with patient.
[2018-06-04] MEDS ORDERED: Ketorolac Inj 30 MG/ML (IVP) Vial IV.PUSH ONE (01:51)
[2018-06-04 04:23] VITALS: O2SAT 97
[2018-06-04 07:20] LABS: Baso % (Auto) 0.4 % (0.0-2.0); Eos # (Auto) 0.2 th/mm3 (0.0-0.4); Eos % (Auto) 2.3 % (0.0-4.0); Hematocrit 23.3 % (35.0-46.0); Hemoglobin 7.9 gm/dL (11.6-15.3); Lymph # (Auto) 1.6 th/mm3 (1.0-4.8); Lymph % (Auto) 20.3 % (9.0-44.0); Mean Corpuscular HGB Conc 33.7 % (32.0-36.0); Mean Corpuscular Hemoglobin 29.2 pg (27.0-34.0); Mean Corpuscular Volume 86.7 fL (80.0-100.0); Mean Platelet Volume 7.2 fL (7.0-11.0); Mono # (Auto) 0.6 th/mm3 (0.0-0.9); Mono % (Auto) 7.3 % (0.0-8.0); Neut # (Auto) 5.6 th/mm3 (1.8-7.7); Neut % (Auto) 69.7 % (16.0-70.0); Platelet Count 282 th/mm3 (150-450); Red Blood Count 2.69 mil/mm3 (4.00-5.30); Red Cell Distribution Width 17.2 % (11.6-17.2)
[2018-06-04 07:50] VITALS: BP 114/63; RESP 16; TEMP 97.6
--- NOTE | 2018-06-04 09:33 | P.PNIM ---
Subjective Interval history: Patient reports she is feeling much better. No SOB, palpitations, or lightheadedness. 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 Physical Exam Vital signs: Vital Signs 06/03/18 12:00 06/03/18 18:09 06/03/18 18:14 Temperature 98.3 F 98.3 F Pulse Rate 89 102 H Respiratory Rate 16 18 18 Blood Pressure 157/74 H 114/69 Pulse Oximetry 100 06/03/18 18:31 06/03/18 20:00 06/03/18 22:12 Temperature 99.0 F 98.5 F 98.2 F Pulse Rate 97 H 106 H 100 H Respiratory Rate 17 19 17 Blood Pressure 115/64 122/79 115/63 Pulse Oximetry 100 100 99 06/03/18 22:29 06/03/18 23:21 06/03/18 23:45 Temperature 98.1 F 98.4 F Pulse Rate 96 H 97 H 88 Respiratory Rate 16 20 Blood Pressure 117/58 L 108/69 Pulse Oximetry 99 06/04/18 00:00 06/04/18 04:00 06/04/18 07:47 Temperature 98.2 F 97.6 F Pulse Rate 93 H 75 87 Respiratory Rate 18 16 Blood Pressure 117/65 114/63 Pulse Oximetry 97 97 Intake & Output 06/03/18 06/04/18 06/04/18 18:59 06:59 18:59 Intake Total 0 / 0 1800 / 1800 Balance 0 / 0 1800 / 1800 Weight 86.183 kg Intake: IV 1000 / 1000 NS Inj 1,000 ML @ Wide Open IV. 1000 / 1000 SIG BOLUS ONE Rx#:[id number] Other 0 / 0 Rbc As-3 Leukoreduced Unit 0 / 0 [id number] Intake (Blood Product) Amt 0 / 0 800 / 800 Rbc As-3 Leukoreduced Unit 400 / 400 [id number] Rbc As-3 Leukoreduced Unit 0 / 0 400 / 400 [id number] Other: # Voids 4 Date of Last Bowel Movement 06/03/18 Narrative: GENERAL: This is a well-nourished, well-developed patient, in no apparent distress. CARDIOVASCULAR: Normal rate and regular rhythm without murmurs, gallops, or rubs. RESPIRATORY: Good respiratory efforts. Breath sounds equal and clear to auscultation bilaterally. GASTROINTESTINAL: Abdomen soft, non-tender, non-distended. Normal active bowel sounds MUSCULOSKELETAL: Extremities without cyanosis, or edema. NEURO: Alert & Oriented x4 to person, place, time, situation. Moves all ext x4 PSYCH: Appropriate mood and affect. Results - Labs CBC & Chem 7: 06/04/18 06:00 06/03/18 14:35 Laboratory Results - last 24 hr 06/03/18 06/03/18 06/03/18 14:35 14:35 14:35 WBC 9.5 RBC 2.14 L Hgb 6.1 L* Hct 18.9 L* MCV 88.2 MCH 28.3 MCHC 32.1 RDW 21.3 H Plt Count 374 D MPV 7.3 Prelim Diff (Auto) Slide review pending Neut % (Auto) 72.2 H Lymph % (Auto) 20.2 [place] % (Auto) 6.1 Eos % (Auto) 1.1 Baso % (Auto) 0.4 Neut # (Auto) 6.9 Lymph # (Auto) 1.9 [place] # (Auto) 0.6 Eos # (Auto) 0.1 Baso # (Auto) 0.0 WBC Differential . Diff Scan Auto diff confirmed Differential Comment . Platelet Estimate Normal Platelet Morphology Normal Ovalocytes 1+ H Keratocytes Occ H Sodium 141 Potassium 4.1 Chloride 108 H Carbon Dioxide 25.3 Anion Gap 8 BUN 13 Creatinine 0.75 Estimated GFR 84 L Random Glucose 97 Calcium 8.2 L Iron TIBC % Saturation Ferritin Total Bilirubin 0.2 AST 18 ALT 19 Alkaline Phosphatase 69 Total Protein 6.3 L Albumin 3.3 L TSH Urine Color Urine Clarity Urine pH Ur Specific [place] Urine Protein Urine Glucose (UA) Urine Ketones Urine Occult Blood Urine Nitrate Urine Bilirubin Urine Urobilinogen Ur Leukocyte Esterase Urine RBC Urine WBC Ur Squamous Epith Cells Calcium Oxalate Crystal Urine Bacteria Urine Mucus Micro UA Comment Ur Microscopic Review Urine Culture Comments Blood Type B Negative Antibody Screen Negative MTS Gel Crossmatch 06/03/18 06/03/18 06/03/18 14:35 14:35 14:35 WBC RBC Hgb Hct MCV MCH MCHC RDW Plt Count MPV Prelim Diff (Auto) Neut % (Auto) Lymph % (Auto) [place] % (Auto) Eos % (Auto) Baso % (Auto) Neut # (Auto) Lymph # (Auto) [place] # (Auto) Eos # (Auto) Baso # (Auto) WBC Differential Diff Scan Differential Comment Platelet Estimate Platelet Morphology Ovalocytes Keratocytes Sodium Potassium Chloride Carbon Dioxide Anion Gap BUN Creatinine Estimated GFR Random Glucose Calcium Iron 24 L TIBC 405 % Saturation 5.9 L Ferritin 21 Cancelled Total Bilirubin AST ALT Alkaline Phosphatase Total Protein Albumin TSH Urine Color Yellow Urine Clarity Cloudy H Urine pH 5.0 Ur Specific [place] 1.026 Urine Protein Negative Urine Glucose (UA) Negative Urine Ketones Trace H Urine Occult Blood Large H Urine Nitrate Negative Urine Bilirubin Negative Urine Urobilinogen Less than 2 Ur Leukocyte Esterase Negative Urine RBC 114 H Urine WBC Less than 1 Ur Squamous Epith Cells <1 Calcium Oxalate Crystal Moderate H Urine Bacteria Few H Urine Mucus Moderate H Micro UA Comment Culture not ind Ur Microscopic Review Not Reportable Urine Culture Comments Culture not ind Blood Type Antibody Screen MTS Gel Crossmatch 06/03/18 06/03/18 06/04/18 14:35 17:13 06:00 WBC 8.0 RBC 2.69 L Hgb 7.9 L Hct 23.3 L MCV 86.7 MCH 29.2 MCHC 33.7 RDW 17.2 D Plt Count 282 MPV 7.2 Prelim Diff (Auto) Neut % (Auto) 69.7 Lymph % (Auto) 20.3 [place] % (Auto) 7.3 Eos % (Auto) 2.3 Baso % (Auto) 0.4 Neut # (Auto) 5.6 Lymph # (Auto) 1.6 [place] # (Auto) 0.6 Eos # (Auto) 0.2 Baso # (Auto) 0.0 WBC Differential . Diff Scan Differential Comment Auto diff final Platelet Estimate Platelet Morphology Ovalocytes Keratocytes Sodium Potassium Chloride Carbon Dioxide Anion Gap BUN Creatinine Estimated GFR Random Glucose Calcium Iron TIBC % Saturation Ferritin Total Bilirubin AST ALT Alkaline Phosphatase Total Protein Albumin TSH 3.650 Urine Color Urine Clarity Urine pH Ur Specific [place] Urine Protein Urine Glucose (UA) Urine Ketones Urine Occult Blood Urine Nitrate Urine Bilirubin Urine Urobilinogen Ur Leukocyte Esterase Urine RBC Urine WBC Ur Squamous Epith Cells Calcium Oxalate Crystal Urine Bacteria Urine Mucus Micro UA Comment Ur Microscopic Review Urine Culture Comments Blood Type Antibody Screen MTS Gel Crossmatch See Detail Assessment and Plan - Plan 47-year-old female with: Severe anemia, recurrent - due Menorrhagia secondary to possible uterine fibroids - Patient was promptly seen by [facility] and they they recommended outpatient follow- up with [facility] to consider surgical treatment. Discussed with the patient. She states this was previously offered by her [facility] doctor. This is her second transfusion during the past 30 days. She will call them today for a follow-up appointment. -Patient received 2 units of PRBC and her H&H stabilized. She is asymptomatic. -Continue on iron 325 mg 3 times daily -Patient is stable for discharge home today. History of hypothyroidism at one point on meds. Now Off medications. TSH normal. Discharge Planning: Discharge patient to home Condition on discharge: Improved Regular Diet as tolerated Ad Fely activity Rx written: None Follow-up with primary care physician and [facility]
[2018-06-04 09:47] VITALS: PULSE 86
== END 2018-06-04 10:50 | disposition home or self-care (01) ==
LOC: NEPD 11:57 → NEDA 11:57 → NEPFCDU 17:55
PROVIDERS: ADMIT Family Medicine; ATTEND Family Medicine